=== PATIENT | male | born 1980 ===

== ENCOUNTER 2020-08-20 07:53 | Emergency (ER) | payer OTHER, SELFPAY ==
[2020-08-20 08:27] VITALS: BP 131/81; PULSE 85; RESP 16; TEMP 36.6; O2SAT 99; BMI 33.0
--- NOTE | 2020-08-20 08:30 | PC.NURSE ---
Addendum entered by Pierce Christy 08/20/20 10:02: SHOULD READ ZENY GO NOT GIOVANI PAULA Original Note: GIOVANI GO AT BEDSIDE FOR INITIAL EVALUATION PT INFORMED OF THE PLAN OF CARE
--- NOTE | 2020-08-20 08:35 | ED.MALEGU ---
HPI - Male Genitourinary General Chief complaint: Urogenital-Male Stated complaint: pain in the genital area Time Seen by Provider: 08/20/20 08:16 Source: patient Mode of arrival: ambulatory History of Present Illness HPI Narrative: 40-year-old male with a past medical history of diabetes presenting to the ED complaining of red, inflamed, painful head of penis/foreskin since yesterday. Reports get penis stuck in pant zipper prior to symptoms beginning. Admits to associated dysuria. Reports he is unable to fully retract foreskin due to swelling. Denies difficulty/inability to urinate, fever/chills, penile discharge, penile/scrotal lesions or testicular pain/swelling. Denies direct trauma to area Patient denies being sexually active or concern for STI MD Complaint: dysuria and genital injury Related Data Previous Rx's Medication Instructions Recorded insulin degludec 200 unit/mL (3 72 unit SUBCUT DAILY 30 Days #10.8 07/22/20 mL) subcutaneous pen ml metformin 1,000 mg tablet 1,000 mg PO BID 30 Days #60 tab 07/22/20 oxycodone-acetaminophen 5 mg-325 1 tab PO BID PRN 30 Days #60 tab 07/23/20 mg tablet pen needle, diabetic 31 gauge x #1200 ea 07/23/2002/22 clotrimazole 1 applic TOPICAL BID 14 Days #14 g 08/20/20 metronidazole 1 applic TOPICAL BID 7 Days #45 g 08/20/20 Allergies Allergy/AdvReac Type Severity Reaction Status Date / Time Penicillins [PCN] Allergy Mild UNKNOWN Unverified 06/26/20 19:35 penicillin V Allergy Unknown Unverified 05/01/20 00:00 Review of Systems Review of Systems: Constitutional: No Weight loss, No Fever, No Chills Gastrointestinal: No Nausea, No Vomiting, No Abdominal pain Genitourinary:+ Dysuria, +Urinary Frequency, No Flank Pain, +penile swelling and pain Musculoskeletal: No joint pain, No Myalgias, No Joint Swelling Skin: No Skin Lesions, No rash Yes all other systems are reviewed and are negative FOR[facility]LY [facility], [facility] Past Medical History Attestation statement: The following information was validated with the patient. Medical History (Updated 08/20/20 @ 08:59 by DONAVAN Parker) Diabetes mellitus Social History Social History Smoked in Last 30 Days: No Use of substances other than those prescribed or required for medical reasons: No Advance Directives: No Advance Directives Information Provided: No Physical Exam Vital Signs: Vital Signs: Last Vital Signs Temp 98 F 08/20/20 08:27 Pulse 78 08/20/20 09:07 Resp 20 08/20/20 09:07 BP 138/78 08/20/20 09:07 Pulse Ox 98 08/20/20 09:07 Body Mass Index 33.0 Const: General: cooperative and healthy appearing Orientation/consciousness: patient oriented x3 Limitations: no limitations HENMT: Head: Yes normal to inspection Ears: hearing grossly normal bilaterally General nose exam: Normal external nose present Face and sinus: Yes normal facial exam Eyes: General: appearance normal, both eyes and all related structures EOM: EOMs intact bilaterally Neck: Neck: Yes normal visual inspection Resp: Effort & Inspection: normal respiratory effort GI: Inspection: Yes normal to inspection Palpation (GI): Soft to palpation : Other: foreskin/head of penis swollen, erythematous, macerated with slightly yellowish drainage noted. No appreciable genital lesions. Unable to fully retract or pull foreward foreskin 2/2 swelling Skin: Rashes: no rashes Wounds: no wounds Neuro: General: patient oriented x3 Gait exam (Neuro): Normal gait present Extrem: General: Yes normal to inspection Course Course Course Narrative: -patient not agreeable to treatment for STIs in the ED at this time, would like to wait for cultures -UA not infected MDM - Male Genitourinary MDM Narrative Medical decision making narrative: On exam VSS, NAD/well-appearing, physical exam as above. Concern for balanitis 2/2 DM or penile injury from zipper. Low concern for phimosis or paraphimosis. Concern for possible STI. Rule out UTI Plan: UA, STI Lab Data Labs: Lab Results 08/20/20 08/20/20 Range/Units 09:08 09:12 POC Glucose 181 H (60-115) mg/dL Urine Color YELLOW Urine Appearance HAZY Urine pH 6.0 (5.0-8.0) Ur Specific [place] >= 1.030 H (1.005-1.025) Urine Protein 1+ H (NEG-TRACE) MG/DL Urine Glucose (UA) 500 H (NEG) MG/DL Urine Ketones 5 (NEG) MG/DL Urine Blood TRACE (NEG) Urine Nitrite NEG (NEG) Ur Leukocyte Esterase TRACE H (NEG) Urine RBC 0-2 (0) /HPF Urine WBC 1-4 (0-4) /HPF Ur Squamous Epith Cells 1+ /LPF Urine Bacteria TRACE /LPF Discharge Plan Discharge Clinical Impression: Balanitis Patient Disposition: Home, Self-Care Additional Instructions: The infection her penis is likely fungal or bacterial, clotrimazole and metronidazole ointment treat different bacteria, apply as directed You should follow-up with your primary care doctor in 3-5 days If area worsens, becomes more swollen, you are unable to urinate, discomfort becomes unbearable, or you fever return to the ED Prescriptions: New clotrimazole 1 % cream 1 applic topical BID 14 Days Qty: 14 RF: 0 metronidazole 0.75 % gel 1 applic topical BID 7 Days Qty: 45 RF: 0 No Action Tresiba FlexTouch U-200 200 unit/mL (3 mL) insulin pen 72 unit subcut DAILY 30 Days Qty: 10.8 RF: 11 metformin 1,000 mg tablet 1,000 mg PO BID 30 Days Qty: 60 RF: 11 (DME) pen needle, diabetic [1st Tier Unifine Pentips] 31 gauge x 5/16 needle See Rx Instructions .ROUTE .MEDSUPPLY Qty: 1200 RF: 11 oxycodone-acetaminophen [Percocet] 5-325 mg tablet 1 tab PO BID PRN (Reason: pain) 30 Days Qty: 60 RF: 0 Referrals: Charlene Cramer MD [Primary Care Provider] - 2 days
[2020-08-20 09:07] VITALS: BP 138/78; PULSE 78; RESP 20; O2SAT 98
[2020-08-20 09:11] LABS: Glucose, Whole Blood 181 mg/dL (60-115)
[2020-08-20 09:23] LABS: Glucose Urine UA 500 MG/DL (NEG); Leukocyte Esterase Urine TRACE (NEG); Nitrite Urine NEG (NEG); Specific Gravity - Urine >= 1.030 (1.005-1.025); Urine Blood TRACE (NEG); Urine Ketones 5 MG/DL (NEG); Urine Protein 1+ MG/DL (NEG-TRACE)
[2020-08-20 09:24] LABS: Appearance Urine HAZY; Color Urine YELLOW
[2020-08-20 09:36] LABS: Bacteria Urine TRACE /LPF; RBC Urine 0-2 /HPF (0); Squamous Epithelial Cell Urine 1+ /LPF
[2020-08-20] MEDS: Ibuprofen 600 MG TABLET PO (09:40)
[2020-08-20 16:30] LABS: CT PCR NOT DETECTED (Not Detect.); NG PCR NOT DETECTED (Not Detect.)
== END 2020-08-20 10:07 | disposition home or self-care (01) ==
PROVIDERS: Physician Assistant; Emergency Provider Emergency Medicine; PCP Internal Medicine
DX: N48.1 Balanitis (principal); Z79.899 Other long term (current) drug therapy
CPT/HCPCS: 81001; 82947; 87086; 87491; 87591; 99284

== ENCOUNTER 2020-08-21 15:36 | Emergency (ER) | payer OTHER, SELFPAY ==
[2020-08-21 16:24] VITALS: BP 135/90; PULSE 77; RESP 16; TEMP 37.4; O2SAT 99; BMI 30.7
--- NOTE | 2020-08-21 16:59 | ED.MALEGU ---
HPI - Male Genitourinary General Chief complaint: Urogenital-Male Stated complaint: allergic reaction Time Seen by Provider: 08/21/20 16:59 History of Present Illness HPI Narrative: Patient was seen here yesterday complains of pain in his foreskin when he urinates or attempts to retract foreskin and he was seen yesterday for balanitis and put on metronidazole cream and clotrimazole cream but says whenever he urinates it is very very painful to the skin, he denies inability to urinate, he denies fever or chills no abdominal pain no back pain Related Data Previous Rx's Medication Instructions Recorded insulin degludec 200 unit/mL (3 72 unit SUBCUT DAILY 30 Days #10.8 07/22/20 mL) subcutaneous pen ml metformin 1,000 mg tablet 1,000 mg PO BID 30 Days #60 tab 07/22/20 oxycodone-acetaminophen 5 mg-325 1 tab PO BID PRN 30 Days #60 tab 07/23/20 mg tablet pen needle, diabetic 31 gauge x #1200 ea 07/23/2002/22 clotrimazole 1 applic TOPICAL BID 14 Days #14 g 08/20/20 lisinopril 5 mg tablet 5 mg PO DAILY #30 tab 08/20/20 metronidazole 1 applic TOPICAL BID 7 Days #45 g 08/20/20 betamethasone valerate 1 applic TOPICAL BID 10 Days #15 g 08/21/20 cephalexin [Keflex] 500 mg PO QID 7 Days #28 cap 08/21/20 oxycodone-acetaminophen [Percocet] 1 tab PO Q6H PRN #10 tab 08/21/20 Allergies Allergy/AdvReac Type Severity Reaction Status Date / Time Penicillins [PCN] Allergy Mild UNKNOWN Unverified 06/26/20 19:35 penicillin V Allergy Unknown Unverified 05/01/20 00:00 Review of Systems Review of Systems: There is no fever no chills no abdominal pain no flank pain no back pain no leg swelling FORMERLY [facility] Past Medical History Attestation statement: The following information was validated with the patient. FOR[facility]LY [facility] Narrative: Patient has history of diabetes and he says sugars at home are usually in the 200-300 range Medical History (Updated 08/21/20 @ 17:34 by DONAVAN Shaffer) Diabetes mellitus Social History Social History Alcohol intake: never Smoked in Last 30 Days: No Use of substances other than those prescribed or required for medical reasons: No Advance Directives: No Advance Directives Information Provided: Yes Physical Exam Vital Signs: Vital Signs: Last Vital Signs Temp 99.4 F 08/21/20 16:24 Pulse 77 08/21/20 16:24 Resp 16 08/21/20 16:24 BP 135/90 H 08/21/20 16:24 Pulse Ox 99 08/21/20 16:24 Body Mass Index 30.7 Patient is A&O x3, no acute distress, well hydrated, neck is supple No respiratory distress Abdomen nontender Genital exam the foreskin is very swollen and painful to retract with redness confined to the foreskin and there are some cracks in the tissue as well of the foreskin no other genital lesions, no testicular swelling Extremities full range of motion x4 skin no other rashes neuro no focal deficit Course Course Course Narrative: I checked urine culture from yesterday and there was no positive urine culture so no new urinalysis was done as the patient clearly states the pain is when the urine touches his skin I added a steroid cream and Keflex as well as some pain medicine and he was discharged with recommendation to follow with a urologist Discharge Plan Discharge Clinical Impression: Balanitis Patient Disposition: Home, Self-Care Additional Instructions: Follow with primary care for referral to a urologist, you probably need a circumcision I added antibiotic keflex and an additional steroid cream, and continue using the 2 creams you were given yesterday Return any time for fever, worse pain and swelling, inability to urinate, any worse condition or any concerns Prescriptions: New cephalexin [Keflex] 500 mg capsule 500 mg PO QID 7 Days Qty: 28 RF: 0 betamethasone valerate 0.1 % cream 1 applic topical BID 10 Days Qty: 15 RF: 0 oxycodone-acetaminophen [Percocet] 5-325 mg tablet 1 tab PO Q6H PRN (Reason: pain) Qty: 10 RF: 0 No Action Tresiba FlexTouch U-200 200 unit/mL (3 mL) insulin pen 72 unit subcut DAILY 30 Days Qty: 10.8 RF: 11 metformin 1,000 mg tablet 1,000 mg PO BID 30 Days Qty: 60 RF: 11 (DME) pen needle, diabetic [1st Tier Unifine Pentips] 31 gauge x 5/16 needle See Rx Instructions .ROUTE .MEDSUPPLY Qty: 1200 RF: 11 oxycodone-acetaminophen [Percocet] 5-325 mg tablet 1 tab PO BID PRN (Reason: pain) 30 Days Qty: 60 RF: 0 lisinopril 5 mg tablet 5 mg PO DAILY Qty: 30 RF: 5 clotrimazole 1 % cream 1 applic topical BID 14 Days Qty: 14 RF: 0 metronidazole 0.75 % gel 1 applic topical BID 7 Days Qty: 45 RF: 0 Referrals: Marco Vasquez MD [Physician] - 2 days (balanitis, difficult to retract forskin, may need circumcision) Stand Alone Forms: Work/School Release Interventions: ED Discharge Assessment Last Done: 08/21/20 18:05 Discharge Date/Time: 08/21/20 18:07
[2020-08-21] MEDS: cephALEXin 500 MG CAPSULE PO (17:49)
== END 2020-08-21 18:07 | disposition home or self-care (01) ==
PROVIDERS: Emergency Provider Emergency Medicine Emergency Medical Services; PCP Internal Medicine
DX: N48.1 Balanitis (principal); L23.9 Allergic contact dermatitis, unspecified cause; Z79.899 Other long term (current) drug therapy
CPT/HCPCS: 99283; 99284

== ENCOUNTER → 2020-09-12 08:53 | Outpatient (BNVA) | payer OTHER, SELFPAY | PROVIDERS: PCP Internal Medicine; Visit Provider Urology | DX: N47.1 Phimosis (principal) | CPT/HCPCS: 99202 ==

== ENCOUNTER 2020-09-15 07:09 | Day surgery (SDC) | payer OTHER, SELFPAY ==
--- NOTE | 2020-09-12 12:58 | HO.ANESPROP2 ---
Documented by User: Mayuri Stephens 09/12/20 12:59 HPI - Anesthesia Eval Consult details Narrative: 40yo M for Circumcision PMFSH Past Medical History Medical History Diabetes mellitus Recurrent UTI Family History Family History Father No problems noted. Mother No problems noted. Maternal Grandmother Stomach cancer Surgical History Surgical History History of surgery Social History Social History Alcohol intake: never Smoking Status: Never smoker Use of substances other than those prescribed or required for medical reasons: No Advance Directives: Yes Advance Directives on File: Yes Advance Directives Date on File: 09/15/20 Recently lost weight without trying: No Meds Allergies Allergy/AdvReac Type Severity Reaction Status Date / Time Penicillins [PCN] Allergy Mild UNKNOWN Verified 08/26/20 09:39 penicillin V Allergy Unknown Unknown Verified 08/26/20 09:39 Home Medications Medication Instructions Recorded Confirmed Type doxepin 25 mg capsule 25 mg PO BEDTIME 09/12/20 History pen needle, diabetic 31 gauge x #50 ea 09/12/20 History 3 Exam Exam Date and Time: September 12, 2020 125 Assessment and Plan Assessment Anesthesia Assessment: Chart Reviewed Documented by User: Deidre Espinosa 09/15/20 09:47 PMFSH Past Medical History Medical History Diabetes mellitus Recurrent UTI Family History Family History Father No problems noted. Mother No problems noted. Maternal Grandmother Stomach cancer Surgical History Surgical History History of surgery Social History Social History (Reviewed 09/15/20 @ 09:46 by Deidre Hendricks Alcohol intake: never Smoking Status: Never smoker Use of substances other than those prescribed or required for medical reasons: No Advance Directives: Yes Advance Directives on File: Yes Advance Directives Date on File: 09/15/20 Recently lost weight without trying: No Meds Allergies Allergy/AdvReac Type Severity Reaction Status Date / Time Penicillins [PCN] Allergy Mild UNKNOWN Verified 08/26/20 09:39 penicillin V Allergy Unknown Unknown Verified 08/26/20 09:39 Home Medications Medication Instructions Recorded Confirmed Type doxepin 25 mg capsule 25 mg PO BEDTIME 09/12/20 History pen needle, diabetic 31 gauge x #50 ea 09/12/20 History 12/23 Exam Airway Mallampati Class: II TM Dist: >3cm Neck ROM: Full Assessment and Plan Assessment Anesthesia Assessment: Anesthesia Plan Discussed and Chart Reviewed Final Anesthetic Review NPO: Yes ASA Class: II Final Preanesthetic Review: No Changes in Pt Med Stat, Meds/Allgs Chart Reviewed, Consent Obtained/Reviewed and Anes Risks/Benef Reviewed Patient Risk: Low Procedure Risk: Low Assessment/Block/Sedation in SS: Assess/Block/Sedation-SS Anesthetic Plan Anesthetic Plan: MAC: Disposition: Standard PACU
[2020-09-15] VITALS (12 sets, daily range): BP systolic 113–144; BP diastolic 72–91; PULSE 71–86; RESP 16; TEMP 36.4–37.1; O2SAT 97–99; BMI 29.0
[2020-09-15 08:54] LABS: Glucose, Whole Blood 323 mg/dL (60-115)
[2020-09-15] MEDS: Lactated Ringers 1,000 ML 100 ML IVCONT (08:57)
[2020-09-15] MEDS: ceFAZolin Sodium/Dextrose,Iso 2 GM/50 ML PIGGYBACK IV (08:57)
--- NOTE | 2020-09-15 10:38 | P.CONAN_ITS ---
FORM[facility]LY [facility] Past Medical History Medical History Diabetes mellitus Recurrent UTI Family History Family History Father No problems noted. Mother No problems noted. Maternal Grandmother Stomach cancer Surgical History Surgical History History of surgery Social History Social History Alcohol intake: never Smoking Status: Never smoker Use of substances other than those prescribed or required for medical reasons: No Advance Directives: Yes Advance Directives on File: Yes Advance Directives Date on File: 09/15/20 Recently lost weight without trying: No Meds Allergies Allergy/AdvReac Type Severity Reaction Status Date / Time Penicillins [PCN] Allergy Mild UNKNOWN Verified 08/26/20 09:39 penicillin V Allergy Unknown Unknown Verified 08/26/20 09:39 Home Medications Medication Instructions Recorded Confirmed Type doxepin 25 mg capsule 25 mg PO BEDTIME 09/12/20 History pen needle, diabetic 31 gauge x #50 ea 09/12/20 History 12/23 Exam Exam Date and Time: September 15, 2020 1038 Height,Weight and Vital Signs: Height 5 ft 6 in Weight 81.647 kg Last Vital Signs Temp 97.6 F 09/15/20 08:44 Pulse 76 09/15/20 08:44 Resp 16 09/15/20 08:44 BP 128/81 09/15/20 08:44 Pulse Ox 98 09/15/20 08:44 Pertinent Lab Results Pertinent Lab Results: Laboratory Tests 09/15/20 08:50 POC Glucose 323 H Airway Mallampati Class: II TM Dist: >3cm Neck ROM: Full Assessment and Plan Assessment Anesthesia Assessment: Anesthesia Plan Discussed and Chart Reviewed Final Anesthetic Review NPO: Yes ASA Class: II Final Preanesthetic Review: No Changes in Pt Med Stat, Meds/Allgs Chart Reviewed, Consent Obtained/Reviewed and Anes Risks/Benef Reviewed Patient Risk: Low Procedure Risk: Low Anesthetic Plan Anesthetic Plan: GA Disposition: Standard PACU
--- NOTE | 2020-09-15 10:40 | MHC.SHP ---
Pre-Procedural Eval Section A The patient is an INPATIENT: No Changes since office visit: No Cold of Flu in the past 2 weeks, No New Medical Problems, No Changes in Medication and No Patient answered all questions The History & Physical has been completed within 30 days and I have reviewed it.: Yes Section B Chief Complaint: Phimosis Allergies: Allergies Allergy/AdvReac Type Severity Reaction Status Date / Time Penicillins [PCN] Allergy Mild UNKNOWN Verified 08/26/20 09:39 penicillin V Allergy Unknown Unknown Verified 08/26/20 09:39 Plan Patient has been examined and remains a candidate for the planned procedure
--- NOTE | 2020-09-15 11:44 | PM.OP ---
Brief Operative Note Date of Service: 09/15/20 Pre-op diagnosis: Phimosis Post-op diagnosis: same Procedure: Circumcision Surgeon: Marco Vasquez MD Anesthesia: GLMA Estimated blood loss (mL): 10 Pathology: none sent Condition: stable Disposition: same day
--- NOTE | 2020-09-15 11:45 | P.OP_ITS ---
Operative Note Operative Note Date of Service: 09/15/20 Narrative: PreOperative Diagnosis: Phimosis Post Operative Diagnosis: Phimosis Procedure: Circumcision Surgeon: Dr Marco Vasquez Anesthesia: General Indications for procedure: This is a 40-year-old diabetic male. Had developed phimosis and inability to retract foreskin. On examination in office phimosis was marked. Had prescribed steroid cream was waiting for circumcision. Recommendation was circumcision. Risks and benefits have been discussed. Procedure: After informed consent was verified the patient was brought to the operating room and placed in a supine position. anesthesia was administered per protocol. The patient was prepped and draped in a sterile fashion. A safety pause time- out was performed. Antibiotics have been given. Patient had a marked phimosis. Foreskin was unable to be retracted operating room. Initially anesthetic was given with local anesthetic to the base of the penis and dorsum. A clamp was taken on placed midline on the dorsal aspect of the penis. A dorsal incision was then made. This allowed foreskin to be fully retracted. Smegma was cleaned from the glans penis. The penis was cleaned. A proximal incision was marked on the skin the resting position of the penis. Using a 15 blade this incision was taken down through the skin to the avascular fashion. The foreskin was then retracted. Approximately 5 mm from the coronal sulcus 2nd incision was made running circumferentially. The frenulum of the penis was attached. This was divided and using 4-0 chromic sutures the remaining area on the underside of the glans was reapproximated. The circumcise in distal incision was completed. The sleeve of tissue was lifted and following the avascular plane into the sleeve was divided and removed. All small bleeding areas were controlled. The skin edges were then reapproximated using a combination of 3-0 and 4-0 chromic. A dressing was placed consisting of bacitracin, Xeroform gauze, Dawood wrap and Coban dressing. He tolerated procedure well was explained the operating room transferred in stable condition to the recovery area. Dressing should not be removed for 48 hours. Glans should be coated with thin layer of apical for 2 times a day during recovery. Pathology: Drains:
[2020-09-15] MEDS: oxyCODONE HCl Immed Release 5 MG TABLET PO ×2 (12:13→12:26)
[2020-09-15] MEDS: Acetaminophen 325 MG TABLET 650 MG PO (12:15)
[2020-09-15] MEDS: fentaNYL citrate/PF 100 MCG/2 ML VIAL 50 MCG IVPUSH ×2 (12:25→12:35)
--- NOTE | 2020-09-15 12:35 | HO.POSTANES ---
Post Anesthesia Evaluation Post Anesthesia Evaluation Vital Signs: Vital Signs Temp Pulse Resp BP Pulse Ox 09/15/20 12:30 75 16 118/78 97 09/15/20 12:25 74 16 113/77 97 09/15/20 12:11 73 16 126/75 98 09/15/20 11:56 81 16 128/87 99 09/15/20 11:51 82 16 136/84 97 09/15/20 11:46 97.8 F 71 16 141/86 H 97 09/15/20 08:44 97.6 F 76 16 128/81 98 Anesthesia: General Mental Status: Awake Pain Control: Satisfactory Nausea/Vomiting: None Hydration: Adequate Anesthesia-Related Issues: No Anes. Related Issues
== END 2020-09-15 13:53 | disposition home or self-care (01) ==
PROVIDERS: PCP Internal Medicine; Visit Provider Urology
PROC: (CPT 54161; principal; 2020-09-15 09:30)
DX: N47.1 Phimosis (principal); E11.9 Type 2 diabetes mellitus without complications; Z88.0 Allergy status to penicillin
CPT/HCPCS: 54161; 82947; 88304; J0690; J1100; J2250; J2405; J3010

== ENCOUNTER → 2020-10-15 10:20 | Outpatient (BNVA) | payer OTHER, SELFPAY | PROVIDERS: PCP Internal Medicine; Visit Provider Urology | DX: N47.1 Phimosis (principal) | CPT/HCPCS: 99212 ==

== ENCOUNTER 2021-04-01 00:55 | Emergency (ER) | payer OTHER, SELFPAY ==
--- NOTE | ~2021-04-01 | XR_ITS ---
EXAMINATION: XR HAND, RIGHT CLINICAL INFORMATION: Pain, swelling, ?foreign body between thumb and index finger COMPARISON: 01/29/2019 TECHNIQUE: PA, lateral, and oblique views of the right hand. FINDINGS: No acute fracture or malalignment. Again seen are hypertrophic osseous changes around the sesamoids of the thumb MCP joint, unchanged from prior. 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 No acute osseous findings are identified. Bone mineralization is normal. Joint spaces appear relatively well-preserved. XR/XR hand RT min 3V IMPRESSION: No acute osseous findings are identified in the right hand. Chronic hypertrophic osseous changes are present around the sesamoids of the thumb MCP joint, unchanged.
[2021-04-01 01:46] VITALS: BP 153/70; PULSE 90; RESP 20; TEMP 36.4; O2SAT 99; BMI 29.9
--- NOTE | 2021-04-01 03:45 | ED_ITS ---
HPI - Extremity Problem General Chief complaint: Extremity Injury, Upper Stated complaint: Splinter/Hand swelling/Work Inj Time Seen by Provider: 04/01/21 03:45 Source: patient Mode of arrival: ambulatory History of Present Illness HPI Narrative: 40-year-old male diabetic who presents with right hand redness/pain/swelling this started after an injury whereby he had a puncture wound at work with wood. Related Data Home Medications Medication Instructions Recorded Confirmed doxepin 25 mg capsule 25 mg PO BEDTIME 09/12/20 12/15/20 pen needle, diabetic 31 gauge x #50 ea 09/12/20 12/15/2012/23 alcohol swabs pad TOPICAL QID 10/15/20 12/15/20 escitalopram oxalate 10 mg tablet 10 mg PO DAILY 10/15/20 12/15/20 pen needle, diabetic 32 gauge x #50 ea 10/15/20 12/15/20 Previous Rx's Medication Instructions Recorded metformin 1,000 mg tablet 1,000 mg PO BID 30 Days #60 tab 07/22/20 pen needle, diabetic 31 gauge x #1200 ea 07/23/2002/22 metronidazole 0.75 % topical gel 1 applic TOPICAL BID 7 Days #45 g 08/29/20 blood sugar diagnostic #100 ea 12/15/20 insulin degludec 200 unit/mL (3 75 unit SUBCUT DAILY 30 Days 12/15/20 mL) subcutaneous pen #11.25 ml clotrimazole-betamethasone 1 1 appl TOPICAL BID 30 Days #45 g 12/30/20 %-0.05 % topical cream lisinopril 5 mg tablet 5 mg PO DAILY #30 tab 02/25/21 oxycodone-acetaminophen 5 mg-325 1 tab PO Q6H PRN 30 Days #120 tab 03/02/21 mg tablet Allergies Allergy/AdvReac Type Severity Reaction Status Date / Time Penicillins [PCN] Allergy Mild swelling Verified 12/15/20 16:18 Review of Systems Review of Systems: Pertinent positives and negatives as stated in HPI 10 point review of systems is otherwise negative. [facility] Past Medical History Source: nursing notes reviewed Medical History Diabetes mellitus Essential hypertension Recurrent UTI Surgical History History of surgery Family History Family History Father No problems noted. Mother No problems noted. Maternal Grandmother Stomach cancer Sister No problems noted. Sister No problems noted. Brother No problems noted. Brother No problems noted. Son No problems noted. Son No problems noted. Daughter No problems noted. Daughter No problems noted. Social History Social History Alcohol intake: never Patient Tobacco Use Status: Never used Tobacco Use of substances other than those prescribed or required for medical reasons: No Advance Directives: No Advance Directives Date on File: 09/15/20 Physical Exam Vital Signs: Vital Signs: Last Vital Signs Temp 97.5 F 04/01/21 01:46 Pulse 90 04/01/21 01:46 Resp 20 04/01/21 01:46 BP 153/70 H 04/01/21 01:46 Pulse Ox 99 04/01/21 01:46 Body Mass Index 29.9 VITAL SIGNS: Reviewed. GENERAL: Well developed, well nourished, in no acute distress. HEAD: Normocephalic/atraumatic EYES: PERRLA, EOMI EARS: Ext canals without abnormality OROPHARYNX: no oral lesions noted, posterior pharynx clear LUNGS: Normal breath sounds. No adventitious sounds or accessory muscle use. SpO2<99> CARDIOVASCULAR: Regular rate and rhythm without noted murmurs ABDOMEN: Soft, non-tender, non-distended with bowel sounds. RIGHT HAND: Erythema and mild swelling in the web spacing between the thumb and index finger Course Course Course Narrative: 40-year-old male with history and clinical presentation co nsistent with puncture wound to right hand. Review of x-rays negative for evidence of foreign body for the presence of air within the tissue. Patient provided with combination analgesics and provided with initial antibiotics. He will be discharged in stable condition with remaining course of antibiotics and instructions to follow-up with his primary care provider. Discharge Plan Discharge Clinical Impression: Hand swelling Patient Disposition: Home, Self-Care Instructions: Puncture Wound (ED) Additional Instructions: 1. Reanude todos los medicamentos caseros seg?n lo prescrito. 2. Tylenol 1000 mg, por v?a oral, cada 6 horas seg?n sea necesario para controlar el dolor. No exceda los 4000 mg en 24 horas. 3. Ibuprofeno 400 mg, por v?a oral con leche o alimentos, cada 6 horas seg?n sea necesario para controlar el dolor. Recomiende amparo esto en combinaci?n con Tylenol para un alivio adicional de los s?ntomas. 4. Complete todo el ciclo de antibi?ticos que le hayan recetado. 5. David un seguimiento con urbina proveedor de atenci?n primaria en los pr?ximos 2-3 d?as para orlando reevaluaci?n. Regrese a la deloris de emergencias si drew s?ntomas empeoran. Prescriptions: No Action metformin 1,000 mg tablet 1,000 mg PO BID 30 Days Qty: 60 RF: 11 (DME) pen needle, diabetic [1st Tier Unifine Pentips] 31 gauge x 5/16 needle See Rx Instructions .ROUTE .MEDSUPPLY Qty: 1200 RF: 11 clotrimazole-betamethasone 1-0.05 % cream 1 appl topical BID 30 Days Qty: 45 RF: 3 lisinopril 5 mg tablet 5 mg PO DAILY Qty: 30 RF: 6 oxycodone-acetaminophen 5-325 mg tablet 1 tab PO Q6H PRN (Reason: pain) 30 Days Qty: 120 RF: 0 metronidazole 0.75 % gel 1 applic topical BID 7 Days Qty: 45 RF: 0 Tresiba FlexTouch U-200 200 unit/mL (3 mL) insulin pen 75 unit subcut DAILY 30 Days Qty: 11.25 RF: 11 (DME) FreeStyle Test Strip See Rx Instructions .ROUTE .MEDSUPPLY Qty: 100 RF: 11 doxepin 25 mg capsule 25 mg PO BEDTIME RF: 0 (DME) pen needle, diabetic 31 gauge x 3/16 needle See Rx Instructions ea subcut .MEDSUPPLY Qty: 50 RF: 0 alcohol swabs Pads, Medicated topical QID RF: 0 escitalopram oxalate 10 mg tablet 10 mg PO DAILY RF: 0 (DME) pen needle, diabetic 32 gauge x 5/32 needle See Rx Instructions ea subcut QID Qty: 50 RF: 0 Referrals: Charlene Cramer MD [Primary Care Provider] - 2 days (Re-evaluation of puncture wound to right hand, patient started on antibiotics, no evidence of foreign body) Print Language: Canadian
[2021-04-01] MEDS: Ibuprofen 400 MG TABLET PO (04:15)
[2021-04-01] MEDS: Acetaminophen 325 MG TABLET 975 MG PO (04:15)
[2021-04-01] MEDS: Diphth,Pertus(ACell),Tet Adult 0.5 ML SYRINGE IM (04:16)
--- NOTE | 2021-04-01 04:19 | PC.NURSE ---
PT MEDICATED PER MAR, AWAITING XRAY RESULT AND I&D. AWRE OF PLAN OF CARE.
== END 2021-04-01 04:52 | disposition home or self-care (01) ==
PROVIDERS: Emergency Provider Student in an Organized Health Care Education/Training Program; PCP Internal Medicine
DX: S61.431A Puncture wound without foreign body of right hand, initial encounter (principal); M79.89 Other specified soft tissue disorders; E11.9 Type 2 diabetes mellitus without complications; I10 Essential (primary) hypertension; W45.8XXA Other foreign body or object entering through skin, initial encounter; Y93.9 Activity, unspecified; Y92.89 Other specified places as the place of occurrence of the external cause; Y99.0 Civilian activity done for income or pay; Z79.4 Long term (current) use of insulin; Z79.899 Other long term (current) drug therapy
CPT/HCPCS: 73130; 90471; 90715; 99284

== ENCOUNTER 2021-05-16 18:54 | Emergency (ER) | payer OTHER, SELFPAY ==
[2021-05-16 19:26] VITALS: BP 122/71; PULSE 85; RESP 16; TEMP 36.6; O2SAT 98; BMI 27.3
--- NOTE | 2021-05-16 21:59 | ED_ITS ---
HPI - Wound/Laceration General Chief Complaint: Wound/Laceration Stated Complaint: wound check Time Seen by Provider: 05/16/21 21:50 Source: patient Mode of arrival: ambulatory Limitations: no limitations History of Present Illness HPI narrative: Patient comes to the emergency room complaining of pain in the tip of his right index finger. Patient states that he has significant neuropathy, he has partial distal amputations in his fingers. Patient states that he does not know what happened to his finger this time, yesterday he noticed that the tip of his right index finger was hurting. Patient denies fever or chills Related Data Home Medications Medication Instructions Recorded Confirmed doxepin 25 mg capsule 25 mg PO BEDTIME 09/12/20 12/15/20 pen needle, diabetic 31 gauge x #50 ea 09/12/20 12/15/2012/23 alcohol swabs pad TOPICAL QID 10/15/20 12/15/20 escitalopram oxalate 10 mg tablet 10 mg PO DAILY 10/15/20 12/15/20 pen needle, diabetic 32 gauge x #50 ea 10/15/20 12/15/20 Previous Rx's Medication Instructions Recorded metformin 1,000 mg tablet 1,000 mg PO BID 30 Days #60 tab 07/22/20 pen needle, diabetic 31 gauge x #1200 ea 07/23/2002/22 (1st Tier Unifine Pentips) metronidazole 0.75 % topical gel 1 applic TOPICAL BID 7 Days #45 g 08/29/20 blood sugar diagnostic (FreeStyle #100 ea 12/15/20 Test) insulin degludec 200 unit/mL (3 75 unit SUBCUT DAILY 30 Days 12/15/20 mL) subcutaneous pen (Tresiba #11.25 ml FlexTouch U-200 insulin) lisinopril 5 mg tablet 5 mg PO DAILY #30 tab 02/25/21 clindamycin HCl 300 mg capsule 300 mg PO Q6H 5 Days #20 cap 04/01/21 clotrimazole-betamethasone 1 1 appl TOPICAL BID 30 Days #45 g 04/30/21 %-0.05 % topical cream oxycodone-acetaminophen 5 mg-325 1 tab PO Q6H PRN 30 Days #120 tab 04/30/21 mg tablet Allergies Allergy/AdvReac Type Severity Reaction Status Date / Time Penicillins [PCN] Allergy Mild swelling Verified 12/15/20 16:18 Review of Systems Review of Systems: Constitutional : No Weight loss, No Fever, No Chills, No Night Sweats, No Fatigue, No Malaise ENT/Mouth : No Hearing loss, No Ear Pain, No Nasal Congestion, No Sinus Pain, No Hoarseness, No sore throat, No Rhinorrhea, No Swallowing Difficulty Eyes: No Eye Pain, No Swelling, No Redness, No Foreign Body, No Discharge, No Vision Changes Cardiovascular : No Chest Pain, No SOB, No Dyspnea on Exertion, No Orthopnea, No Edema, No Palpitations Respiratory : No Cough, No Sputum, No Wheezing, No Smoke Exposure, No Dyspnea Gastrointestinal : No Nausea, No Vomiting, No Diarrhea, No Constipation, No abdominal Pain, No Hematochezia, No Melena Genitourinary : no irregular bleeding, No Dysuria, No Urinary Frequency, No Hematuria, No Urinary Incontinence, No Urgency, No Flank Pain, No Urinary Flow Changes, No Hesitancy Musculoskeletal : No joint pain, No Myalgias, No Joint Swelling, mild pain to the index finger distal aspect Skin : No Skin Lesions, No rash Neuro : No Weakness, No Numbness, No Paresthesias, No Loss of Consciousness, No Dizziness, No Headache Psych : No Anxiety/Panic, No Depression, No SI/HI/AH/VH, No Social Issues, Heme/Lymph: No Bruising, No Bleeding,No Lymphadenopathy Endocrine : No Polyuria, No Polydipsia, No Temperature Intolerance [facility] Past Medical History Medical History Diabetes mellitus Essential hypertension Recurrent UTI Surgical History History of surgery Family History Family History Father No problems noted. Mother No problems noted. Maternal Grandmother Stomach cancer Sister No problems noted. Sister No problems noted. Brother No problems noted. Brother No problems noted. Son No problems noted. Son No problems noted. Daughter No problems noted. Daughter No problems noted. Social History Social History Alcohol intake: never Patient Tobacco Use Status: Never used Tobacco Advance Directives: No Advance Directives Date on File: 09/15/20 Physical Exam Vital Signs: Vital Signs: Last Vital Signs Temp 98 F 05/16/21 19:26 Pulse 85 05/16/21 19:26 Resp 16 05/16/21 19:26 BP 122/71 05/16/21 19:26 Pulse Ox 98 05/16/21 19:26 Body Mass Index 27.3 Const: Other: Appearance: Alert. Oriented X3. No acute distress. Eyes: Pupils equal, round and reactive to light. ENT: Pharynx normal. Neck: Normal inspection. Neck supple. No lymph nodes noted. No crepitus CVS: Normal heart rate and rhythm. Pulses normal. Normal S1 and S2 Respiratory: No respiratory distress. Breath sounds normal. No Wheezing. No rales Abdomen: Soft and nontender. No rigidity. No distention. good BS x4 Skin: Skin warm and dry. See below Extremities: No lower extremity edema. Patient has multiple distal partial amputations of the digits in his hands. The distal aspect of the right index has a small ecchymosis at the tip, no pus drainage, no bloody discharge. No erythema. Patient able to flex and extend the remainder of the digit. Neuro: Oriented X 3. No motor deficit. No sensory deficit. Moving all extermities. No slurred speech. Course Course Course Narrative: I discussed the physical exam with the patient, patient likely has a small contusion in his finger, this time infection is not suspected. However, discussed with the patient that if he develops fever, chills, any kind of drainage, he needs to return to the emergency room. Discharge Plan Discharge Clinical Impression: Contusion of finger, right Qualifiers: Encounter type: initial encounter Finger: index finger Patient Disposition: Home, Self-Care Instructions: Hematoma (ED) Additional Instructions: Please follow-up with your primary care physician tomorrow. If you have any worsening or new symptoms, please return to the emergency room or call 911 Prescriptions: No Action metformin 1,000 mg tablet 1,000 mg PO BID 30 Days Qty: 60 RF: 11 (DME) pen needle, diabetic [1st Tier Unifine Pentips] 31 gauge x 5/16 needle See Rx Instructions .ROUTE .MEDSUPPLY Qty: 1200 RF: 11 lisinopril 5 mg tablet 5 mg PO DAILY Qty: 30 RF: 6 clotrimazole-betamethasone 1-0.05 % cream 1 appl topical BID 30 Days Qty: 45 RF: 3 oxycodone-acetaminophen 5-325 mg tablet 1 tab PO Q6H PRN (Reason: pain) 30 Days Qty: 120 RF: 0 clindamycin HCl 300 mg capsule 300 mg PO Q6H 5 Days Qty: 20 RF: 0 metronidazole 0.75 % gel 1 applic topical BID 7 Days Qty: 45 RF: 0 Tresiba FlexTouch U-200 200 unit/mL (3 mL) insulin pen 75 unit subcut DAILY 30 Days Qty: 11.25 RF: 11 (DME) FreeStyle Test Strip See Rx Instructions .ROUTE .MEDSUPPLY Qty: 100 RF: 11 doxepin 25 mg capsule 25 mg PO BEDTIME RF: 0 (DME) pen needle, diabetic 31 gauge x 3/16 needle See Rx Instructions ea subcut .MEDSUPPLY Qty: 50 RF: 0 alcohol swabs Pads, Medicated topical QID RF: 0 escitalopram oxalate 10 mg tablet 10 mg PO DAILY RF: 0 (DME) pen needle, diabetic 32 gauge x 5/32 needle See Rx Instructions ea subcut QID Qty: 50 RF: 0
== END 2021-05-16 22:09 | disposition home or self-care (01) ==
PROVIDERS: Emergency Provider Emergency Medicine; PCP Internal Medicine
DX: S60.021A Contusion of right index finger without damage to nail, initial encounter (principal); X58.XXXA Exposure to other specified factors, initial encounter; E11.9 Type 2 diabetes mellitus without complications; I10 Essential (primary) hypertension; Y93.9 Activity, unspecified; Y92.9 Unspecified place or not applicable; Y99.9 Unspecified external cause status; Z79.4 Long term (current) use of insulin; Z89.021 Acquired absence of right finger(s)
CPT/HCPCS: 99283

== ENCOUNTER 2021-06-30 17:50 | Outpatient (REF) | payer OTHER, SELFPAY ==
[2021-06-30 18:24] LABS: Amphetamine Screen Urine Not Detected (Not Detect); Barbiturates, Urine Not Detected (Not Detect); Benzodiazepines Screen Urine Not Detected (Not Detect); Cannabinoid Screen Urine POSITIVE (Not Detect); Cocaine Screen Urine Not Detected (Not Detect); Creatinine Urine 24.19 mg/dL; Fentanyl, urine Not Detected (Not Detect); Microalbum/Creatinine Ratio Ur 28.9 ug/mg cr; Opiate Screen Urine Not Detected (Not Detect); Phencyclidine Screen Urine Not Detected (Not Detect)
== END 2021-06-30 17:51 | disposition home or self-care (01) ==
LOC: HO.LNP 17:50
PROVIDERS: Visit Provider Internal Medicine
DX: F11.20 Opioid dependence, uncomplicated (principal); E11.9 Type 2 diabetes mellitus without complications
CPT/HCPCS: 80307; 80364; 80365; 82043

== ENCOUNTER 2021-08-28 06:49 | Emergency (ER) | payer OTHER, SELFPAY ==
--- NOTE | ~2021-08-28 | XR_ITS ---
EXAMINATION: XR FINGER, LEFT CLINICAL INFORMATION: Pain. Question foreign body COMPARISON: None TECHNIQUE: Three views of the left third digit. FINDINGS: No radiopaque foreign body. No soft tissue air. The bones and soft tissues are normal. No fracture. Alignment is anatomic. Joint spaces are maintained. XR/XR finger LT min 2V IMPRESSION: Normal finger radiographs. If a nonopaque foreign body is questioned, consider targeted ultrasound.
[2021-08-28 07:03] VITALS: BP 131/79; PULSE 80; RESP 18; TEMP 36.6; O2SAT 98; BMI 25.8
--- NOTE | 2021-08-28 07:09 | ED.EXTPRO ---
HPI - Extremity Problem General Chief complaint: Extremity Injury, Upper Stated complaint: Finger Inj/Work related Time Seen by Provider: 08/28/21 07:08 Source: patient Mode of arrival: ambulatory Limitations: no limitations History of Present Illness Complaint: other (finger injury/swelling) Onset (ago): day(s) (3) Pain Consistency: constant Location: left and other (middle finger - tip) Quality: aching, dull and constant Radiation: none Relieving factors: nothing Exacerbating factors: palpation Associated symptoms: denies other symptoms Context: other (hit it with a hammer also worried that a piece of plywood may have splintered in there) Related Data Home Medications Medication Instructions Recorded Confirmed doxepin 25 mg capsule 25 mg PO BEDTIME 09/12/20 06/30/21 pen needle, diabetic 31 gauge x #50 ea 09/12/20 06/30/2112/23 alcohol swabs pad TOPICAL QID 10/15/20 06/30/21 escitalopram oxalate 10 mg tablet 10 mg PO DAILY 10/15/20 06/30/21 pen needle, diabetic 32 gauge x #50 ea 10/15/20 06/30/21 Previous Rx's Medication Instructions Recorded metformin 1,000 mg tablet 1,000 mg PO BID 30 Days #60 tab 07/22/20 pen needle, diabetic 31 gauge x #1200 ea 07/23/2002/22 (1st Tier Unifine Pentips) blood sugar diagnostic (FreeStyle #100 ea 12/15/20 Test) insulin degludec 200 unit/mL (3 80 unit (0.4 mL) SUBCUT DAILY 30 06/30/21 mL) subcutaneous pen (Tresiba Days #12 ml FlexTouch U-200 insulin) semaglutide 1 mg/dose (2 mg/1.5 1 mg (0.75 mL) SUBCUT QWEEK 90 06/30/21 mL) subcutaneous pen injector Days #9.75 ml (Ozempic) clotrimazole-betamethasone 1 1 appl TOPICAL BID 30 Days #45 g 07/30/21 %-0.05 % topical cream doxycycline monohydrate 100 mg 100 mg PO BID 7 Days #14 tab 08/28/21 tablet Allergies Allergy/AdvReac Type Severity Reaction Status Date / Time Penicillins [PCN] Allergy Mild swelling Verified 06/30/21 16:25 Review of Systems Review of Systems: Constitutional : No Fever, No Chills ENT/Mouth : No sore throat, No Rhinorrhea Eyes: No Eye Pain, No Swelling, No Redness Cardiovascular : No Chest Pain, No SOB Respiratory : No Cough, No Sputum Gastrointestinal : No Nausea, No Vomiting, No Diarrhea, No abdominal Pain Genitourinary : No Dysuria, No Hematuria Musculoskeletal : No joint pain, No Myalgias, pos Joint Swelling Skin : no rash, positive skin lesion Neuro : No Weakness, No Numbness, No Headache Psych : No Anxiety, No Depression [facility] Past Medical History Attestation statement: The following information was validated with the patient. Medical History Chronic hand pain Diabetes mellitus Essential hypertension Mild recurrent major depression Opioid dependence Primary insomnia Recurrent UTI Surgical History History of surgery Family History Family History Father No problems noted. Mother No problems noted. Maternal Grandmother Stomach cancer Sister No problems noted. Sister No problems noted. Brother No problems noted. Brother No problems noted. Son No problems noted. Son No problems noted. Daughter No problems noted. Daughter No problems noted. Social History Social History Housing: Apartment Alcohol intake: never Patient Tobacco Use Status: Never used Tobacco e-Cigarette/Vaping Use: Never Used Second Hand Smoke Exposure: No Advance Directives Date on File: 09/15/20 service: No Current occupational status: unemployed Physical Exam Vital Signs: Vital Signs: Last Vital Signs Temp 97.8 F 08/28/21 07:03 Pulse 80 08/28/21 07:03 Resp 18 08/28/21 07:03 BP 131/79 08/28/21 07:03 Pulse Ox 98 08/28/21 07:03 Body Mass Index 25.8 Appearance: Alert. Oriented X3. No acute distress. Eyes: Pupils equal, round and reactive to light. ENT: Pharynx normal. Neck: Normal inspection. Neck supple. CVS: Normal heart rate and rhythm. Pulses normal. Respiratory: No respiratory distress. Breath sounds normal. Abdomen: no signs of trauma Skin: Skin warm and dry. Normal skin color Extremities:L middle finger full ROM distal NV intact, digit itself is not red or swollen on proximal nail fold very small less than 0.5cm red raised area very minimal fluctuance ?early paronychia no purulence noted Neuro: Oriented X 3. No motor deficit. No sensory deficit. Course Course Course Narrative: tdap is UTD clinically I do not suspect FB I do not even see entrance wound and the area that appears questionable is compatiable with early paronychia MDM - Extremity (Nontraumatic) MDM Narrative Medical decision making narrative: 41 yo male with DM here with L middle finger pain and swelling at the tip after hitting it with a hammer - he has full ROM there is no signs of tenosynovisitis will obtain xray for FB/fracture. His exam seems more consistent with early paronychia will start on augmentin and betadine soaks Discharge Plan Discharge Clinical Impression: Paronychia of finger Patient Disposition: Home, Self-Care Instructions: Paronychia (ED) Additional Instructions: return to ED for any worsening symptoms or concerns NORMAL XRAY NO BROKEN BONE remojos de betadine: 10 gotas en agua tibia remojar vicky 5 minutos dos veces al d?a vicky 5 d?as Regrese si el ?latisha se pone m?s seble, inflamada, dolorosa o aumenta el drenaje. Prescriptions: New doxycycline monohydrate 100 mg tablet 100 mg PO BID 7 Days Qty: 14 RF: 0 No Action metformin 1,000 mg tablet 1,000 mg PO BID 30 Days Qty: 60 RF: 11 (DME) pen needle, diabetic [1st Tier Unifine Pentips] 31 gauge x 5/16 needle See Rx Instructions .ROUTE .MEDSUPPLY Qty: 1200 RF: 11 clotrimazole-betamethasone 1-0.05 % cream 1 appl topical BID 30 Days Qty: 45 RF: 0 (DME) FreeStyle Test Strip See Rx Instructions .ROUTE .MEDSUPPLY Qty: 100 RF: 11 Ozempic 1 mg/dose (2 mg/1.5 mL) pen injector 1 mg subcut QWEEK 90 Days Qty: 9.75 RF: 1 Tresiba FlexTouch U-200 200 unit/mL (3 mL) insulin pen 80 unit subcut DAILY 30 Days Qty: 12 RF: 11 doxepin 25 mg capsule 25 mg PO BEDTIME RF: 0 (DME) pen needle, diabetic 31 gauge x 3/16 needle See Rx Instructions ea subcut .MEDSUPPLY Qty: 50 RF: 0 alcohol swabs Pads, Medicated topical QID RF: 0 escitalopram oxalate 10 mg tablet 10 mg PO DAILY RF: 0 (DME) pen needle, diabetic 32 gauge x 5/32 needle See Rx Instructions ea subcut QID Qty: 50 RF: 0 Stand Alone Forms: Work/School Release Print Language: Chinese
--- NOTE | 2021-08-28 07:55 | PC.NURSE ---
1ST ENCOUNTER WITH PATIENT FOR DC PURPOSES,. PT AWAKE, ALERT AND ORIENTED X 3. SKIN WARM AND DRY. SMALL AMOUNT OF REDNESS NOTED AROUND NAIL BED OF FINGER. REDNESS DOES NOT EXTEND UP THE FINGER. +CMS. EVALUATED BY DR NANCE. PLAN IS FOR DC HOME WITH ABX. PT AWARE AND AGREEABLE TO PLAN
== END 2021-08-28 07:57 | disposition home or self-care (01) ==
LOC: HO.ED 07:46
PROVIDERS: Emergency Provider Emergency Medicine; PCP Internal Medicine
DX: L03.012 Cellulitis of left finger (principal); M79.645 Pain in left finger(s); E11.9 Type 2 diabetes mellitus without complications; F11.20 Opioid dependence, uncomplicated; Z79.4 Long term (current) use of insulin
CPT/HCPCS: 73140; 99282; 99283

== ENCOUNTER 2021-10-06 07:08 | Emergency (ER) | payer OTHER, SELFPAY ==
--- NOTE | ~2021-10-06 | US_ITS ---
EXAMINATION: US ABDOMEN LIMITED CLINICAL INFORMATION: Epigastric pain. Elevated liver function tests.. COMPARISON: CT abdomen pelvis 11/14/2018. TECHNIQUE: Real-time imaging of the right upper quadrant abdominal viscera. FINDINGS: PANCREAS: Partially obscured from visualization by overlying bowel gas. LIVER: Moderate diffuse increased echogenicity with obscuration of the expected differentiation between periportal fat in liver parenchyma. No focal parenchymal lesions. Normal capsular contour and hepatic size. GALLBLADDER: A single 3 mm mural based hyperechoic focus with no definitive posterior acoustic shadowing is noted along the nondependent lateral margin of the body of the gallbladder suspicious for a gallbladder wall polyp. Color Doppler interrogation demonstrates no measurable internal flow. Minimal scattered low-level specular reflectors are noted centrally within the gallbladder lumen and may represent minimal debris or echogenic bile sludge. No definitive cholelithiasis identified area no gallbladder wall thickening or pericholecystic fluid collection. COMMON BILE DUCT: Normal in caliber measuring 0.3 cm in diameter. RIGHT KIDNEY: The right kidney measures 12.0 cm in maximum dimension. The superior pole exhibits a 1.1 cm maximum diameter generally rounded anechoic well-circumscribed focus with posterior acoustic enhancement consistent with a simple, benign cyst requiring no additional imaging follow-up. FREE FLUID: None. US/US abdomen limited IMPRESSION: *Single 3 mm gallbladder wall lesion suspicious for a gallbladder wall polyp. The radiographic literature is inconsistent regarding appropriate imaging follow-up. This finding is overwhelmingly likely to be benign. A conservative follow-up protocol would be 6-12 month follow-up imaging to demonstrate stability. *No cholelithiasis. No acute abnormalities identified. Minimal echogenic sludge within the gallbladder lumen. *Diffuse hepatic steatosis.
[2021-10-06 07:22] VITALS: BP 135/85; PULSE 78; RESP 18; TEMP 36.8; O2SAT 96
[2021-10-06 07:24] VITALS: BP 135/85; PULSE 82; RESP 11; TEMP 36.8; O2SAT 98; BMI 26.6
--- NOTE | 2021-10-06 07:34 | ED_ITS ---
HPI - Abdominal Pain General Chief Complaint: Abdominal Pain Stated Complaint: N/V/D Time Seen by Provider: 10/06/21 07:18 Source: patient Mode of arrival: ambulatory Limitations: no limitations History of Present Illness HPI narrative: Patient comes to the emergency room complaining of nausea vomiting and diarrhea for 1 day. Patient states that his and his 2 step sons have similar symptoms. Patient denies using alcohol, admits to occasionally using marijuana. Patient states he used Percocet recently for the pain from a previous prescription he had. Patient states that his was recently diagnosed with influenza. Related Data Home Medications Medication Instructions Recorded Confirmed doxepin 25 mg capsule 25 mg PO BEDTIME 09/12/20 06/30/21 pen needle, diabetic 31 gauge x #50 ea 09/12/20 06/30/2112/23 alcohol swabs pad TOPICAL QID 10/15/20 06/30/21 escitalopram oxalate 10 mg tablet 10 mg PO DAILY 10/15/20 06/30/21 pen needle, diabetic 32 gauge x #50 ea 10/15/20 06/30/21 Previous Rx's Medication Instructions Recorded metformin 1,000 mg tablet 1,000 mg PO BID 30 Days #60 tab 07/22/20 pen needle, diabetic 31 gauge x #1200 ea 07/23/2002/22 (1st Tier Unifine Pentips) blood sugar diagnostic (FreeStyle #100 ea 12/15/20 Test) insulin degludec 200 unit/mL (3 80 unit (0.4 mL) SUBCUT DAILY 30 06/30/21 mL) subcutaneous pen (Tresiba Days #12 ml FlexTouch U-200 insulin) semaglutide 1 mg/dose (2 mg/1.5 1 mg (0.75 mL) SUBCUT QWEEK 90 06/30/21 mL) subcutaneous pen injector Days #9.75 ml (Ozempic) clotrimazole-betamethasone 1 1 appl TOPICAL BID 30 Days #45 g 07/30/21 %-0.05 % topical cream doxycycline monohydrate 100 mg 100 mg PO BID 7 Days #14 tab 08/28/21 tablet lisinopril 5 mg tablet 5 mg PO DAILY 90 Days #90 tab 09/20/21 loperamide 2 mg tablet 2 mg PO Q4H PRN #10 tab 12/28/21 ondansetron HCl 4 mg tablet 4 mg PO Q6H PRN #10 tab 10/06/21 (Zofran) Allergies Allergy/AdvReac Type Severity Reaction Status Date / Time Penicillins [PCN] Allergy Mild swelling Verified 06/30/21 16:25 Review of Systems Review of Systems Constitutional : No Weight loss, No Fever, No Chills, No Night Sweats complaining of fatigue and generalized malaise ENT/Mouth : No Hearing loss, No Ear Pain, No Nasal Congestion, No Sinus Pain, No Hoarseness, No sore throat, No Rhinorrhea, No Swallowing Difficulty Eyes: No Eye Pain, No Swelling, No Redness, No Foreign Body, No Discharge, No Vision Changes Cardiovascular : No Chest Pain, No SOB, No Dyspnea on Exertion, No Orthopnea, No Edema, No Palpitations Respiratory : No Cough, No Sputum, No Wheezing, No Smoke Exposure, No Dyspnea Gastrointestinal : Complaining of nausea vomiting and diarrhea. No Constipation, No abdominal Pain, No Hematochezia, No Melena Genitourinary : no irregular bleeding, No Dysuria, No Urinary Frequency, No Hematuria, No Urinary Incontinence, No Urgency, No Flank Pain, No Urinary Flow Changes, No Hesitancy Musculoskeletal : No joint pain, No Myalgias, No Joint Swelling Skin : No Skin Lesions, No rash Neuro : No Weakness, No Numbness, No Paresthesias, No Loss of Consciousness, No Dizziness, No Headache Psych : No Anxiety/Panic, No Depression, No SI/HI/AH/VH, No Social Issues, Heme/Lymph: No Bruising, No Bleeding,No Lymphadenopathy Endocrine : No Polyuria, No Polydipsia, No Temperature Intolerance Physical Exam Vital Signs: Vital Signs: Last Vital Signs Temp 98.2 F 10/06/21 07:24 Pulse 82 10/06/21 07:24 Resp 11 L 10/06/21 07:24 BP 135/85 10/06/21 07:24 Pulse Ox 98 10/06/21 07:24 BMI result Body Mass Index 26.6 Const: Other: Appearance: Alert. Oriented X3. No acute distress. Well- appearing Eyes: Pupils equal, round and reactive to light. ENT: Pharynx normal. Neck: Normal inspection. Neck supple. No lymph nodes noted. No crepitus CVS: Normal heart rate and rhythm. Pulses normal. Normal S1 and S2 Respiratory: No respiratory distress. Breath sounds normal. No Wheezing. No rales Abdomen: Soft and nontender. No rigidity. No distention. Skin: Skin warm and dry. Normal skin color. Normal skin turgor. Extremities: No lower extremity edema. No Lacerations. No Rash Neuro: Oriented X 3. No motor deficit. No sensory deficit. Moving all extermities. No slurred speech. Course Course Course Narrative: patient's LFTs elevated more than average. Ultrasound negative. Patient feeling better. Patient having any vomiting or diarrhea or abdominal pain at this time, patient feeling better, ready to be discharged MDM - Abdominal Pain Lab Data Result diagrams: 10/06/21 07:52 10/06/21 07:52 Labs: Lab Results 10/06/21 10/06/21 10/06/21 Range/Units 07:52 07:52 07:52 WBC 7.8 (4.8-10.8) X10*3/uL RBC 5.68 (4.60-5.80) X10*6/uL Hgb 17.0 (14.0-18.0) g/dl Hct 48.5 (42.0-52.0) % MCV 85.4 (80.0-98.0) fL MCH 29.9 (27.0-33.0) pg MCHC 35.1 (31.0-36.0) g/dl RDW 11.9 (11.0-16.0) % Plt Count 177 (160-400) X10*3/uL MPV 10.9 (9.4-12.4) fL Immature Gran % (Auto) 0.8 H (0.0-0.4) % Neut % (Auto) 85.3 H (45-73) % Lymph % (Auto) 6.0 L (20-40) % [place] % (Auto) 7.3 (2-11) % Eos % (Auto) 0.3 (0-4) % Baso % (Auto) 0.3 (0-2) % Lymph # (Auto) 0.5 L (1.2-4.9) X10*3/uL [place] # (Auto) 0.6 (0.1-1.2) X10*3/uL Eos # (Auto) 0.0 (0.0-0.4) X10*3/uL Baso # (Auto) 0.0 (0.0-0.2) X10*3/uL Abs Immat Gran (auto) 0.06 H (0.00-0.03) X10*3/uL Absolute Neuts (auto) 6.7 (2.0-8.3) x10*3/uL Absolute Nucleated RBC 0.000 (0.0-0.012) X10*3/uL Nucleated RBC % (auto) 0.0 (0.0-0.2) /100WBC Sodium 134 L (135-145) mmol/L Potassium 4.1 (3.3-5.1) mmol/L Chloride 98 (96-108) mmol/L Carbon Dioxide 28 (22-29) mmol/L Anion Gap 12 (12-20) BUN 13 (9-16) mg/dL Creatinine 0.93 (0.5-1.4) mg/dL Estim Creat Clear Calc 96.7 Estimated GFR > 60 Random Glucose 345 H (60-115) mg/dL Calcium 9.0 (8.4-10.2) mg/dL Total Bilirubin 2.3 H (0.0-1.0) mg/dL Direct Bilirubin 0.7 H (0.0-0.5) mg/dL AST 27 (5-37) U/L ALT 31 (0-40) U/L Alkaline Phosphatase 96 (39-117) U/L Total Protein 7.2 (6.5-8.0) g/dL Albumin 4.2 (3.5-5.0) g/dL Lipase 21 (8-78) U/L Influenza Type A (PCR) NEGATIVE (Negative) Influenza Type B (PCR) NEGATIVE (Negative) RSV RNA Qual (PCR) NEGATIVE (Negative) SARS-CoV-2 RNA (RT-PCR) NEGATIVE (Negative) Imaging Data US - abdomen: Radiologist's impression: FINDINGS: PANCREAS: Partially obscured from visualization by overlying bowel gas. LIVER: Moderate diffuse increased echogenicity with obscuration of the expected differentiation between periportal fat in liver parenchyma. No focal parenchymal lesions. Normal capsular contour and hepatic size. GALLBLADDER: A single 3 mm mural based hyperechoic focus with no definitive posterior acoustic shadowing is noted along the nondependent lateral margin of the body of the gallbladder suspicious for a gallbladder wall polyp. Color Doppler interrogation demonstrates no measurable internal flow. Minimal scattered low-level specular reflectors are noted centrally within the gallbladder lumen and may represent minimal debris or echogenic bile sludge. No definitive cholelithiasis identified area no gallbladder wall thickening or pericholecystic fluid collection. COMMON BILE DUCT: Normal in caliber measuring 0.3 cm in diameter. RIGHT KIDNEY: The right kidney measures 12.0 cm in maximum dimension. The superior pole exhibits a 1.1 cm maximum diameter generally rounded anechoic well-circumscribed focus with posterior acoustic enhancement consistent with a simple, benign cyst requiring no additional imaging follow-up. FREE FLUID: None. US/US abdomen limited IMPRESSION: *Single 3 mm gallbladder wall lesion suspicious for a gallbladder wall polyp. The radiographic literature is inconsistent regarding appropriate imaging follow-up. This finding is overwhelmingly likely to be benign. A conservative follow-up protocol would be 6-12 month follow-up imaging to demonstrate stability. *No cholelithiasis. No acute abnormalities identified. Minimal echogenic sludge within the gallbladder lumen. *Diffuse hepatic steatosis. Discharge Plan Discharge Clinical Impression: Nausea vomiting and diarrhea, Acute viral syndrome Patient Disposition: Home, Self-Care Instructions: Viral Syndrome (ED) Additional Instructions: Please follow-up with your primary care physician tomorrow. If you have any worsening or new symptoms, please return to the emergency room or call 911 Prescriptions: New ondansetron HCl [Zofran] 4 mg tablet 4 mg PO Q6H PRN (Reason: nausea and vomiting) Qty: 10 RF: 0 loperamide 2 mg tablet 2 mg PO Q4H PRN (Reason: loose stool) Qty: 10 RF: 0 No Action metformin 1,000 mg tablet 1,000 mg PO BID 30 Days Qty: 60 RF: 11 (DME) pen needle, diabetic [1st Tier Unifine Pentips] 31 gauge x 5/16 needle See Rx Instructions .ROUTE .MEDSUPPLY Qty: 1200 RF: 11 clotrimazole-betamethasone 1-0.05 % cream 1 appl topical BID 30 Days Qty: 45 RF: 0 lisinopril 5 mg tablet 5 mg PO DAILY 90 Days Qty: 90 RF: 1 doxycycline monohydrate 100 mg tablet 100 mg PO BID 7 Days Qty: 14 RF: 0 (DME) FreeStyle Test Strip See Rx Instructions .ROUTE .MEDSUPPLY Qty: 100 RF: 11 Ozempic 1 mg/dose (2 mg/1.5 mL) pen injector 1 mg subcut QWEEK 90 Days Qty: 9.75 RF: 1 Tresiba FlexTouch U-200 200 unit/mL (3 mL) insulin pen 80 unit subcut DAILY 30 Days Qty: 12 RF: 11 doxepin 25 mg capsule 25 mg PO BEDTIME RF: 0 (DME) pen needle, diabetic 31 gauge x 3/16 needle See Rx Instructions ea subcut .MEDSUPPLY Qty: 50 RF: 0 alcohol swabs Pads, Medicated topical QID RF: 0 escitalopram oxalate 10 mg tablet 10 mg PO DAILY RF: 0 (DME) pen needle, diabetic 32 gauge x 5/32 needle See Rx Instructions ea subcut QID Qty: 50 RF: 0 PMFSH Past Medical History Medical History Chronic hand pain Diabetes mellitus Essential hypertension Mild recurrent major depression Opioid dependence Primary insomnia Recurrent UTI Surgical History History of surgery Family History Family History Father No problems noted. Mother No problems noted. Maternal Grandmother Stomach cancer Sister No problems noted. Sister No problems noted. Brother No problems noted. Brother No problems noted. Son No problems noted. Son No problems noted. Daughter No problems noted. Daughter No problems noted. Social History Social History Housing: Apartment Alcohol intake: never Patient Tobacco Use Status: Never used Tobacco e-Cigarette/Vaping Use: Never Used Second Hand Smoke Exposure: No Use of substances other than those prescribed or required for medical reasons: No Advance Directives: No Advance Directives Information Provided: No Advance Directives Date on File: 09/15/20 service: No Current occupational status: unemployed
[2021-10-06] MEDS: ondansetron HCL 4 MG/2 ML VIAL IVPUSH (07:41)
[2021-10-06] MEDS: 0.9 % Sodium Chloride 1,000 ML 999 ML IVCONT (07:41)
[2021-10-06] MEDS: Loperamide HCl 2 MG CAPSULE 4 MG PO (07:41)
[2021-10-06 07:56] LABS: MANUAL DIFF FLAG NO
[2021-10-06 08:04] LABS: Basophils Percent Auto 0.3 % (0-2); Eosinophils Percent Auto 0.3 % (0-4); Hematocrit 48.5 % (42.0-52.0); Imm Gran Abs Auto 0.06 X10*3/uL (0.00-0.03); Imm Gran Pct Auto 0.8 % (0.0-0.4); Lymphocytes Absolute Auto 0.5 X10*3/uL (1.2-4.9); Mean Corpuscular HGB Conc 35.1 g/dl (31.0-36.0); Mean Corpuscular Hemoglobin 29.9 pg (27.0-33.0); Mean Corpuscular Volume 85.4 fL (80.0-98.0); Mean Platelet Volume 10.9 fL (9.4-12.4); Monocytes Absolute Auto 0.6 X10*3/uL (0.1-1.2); Monocytes Percent Auto 7.3 % (2-11); Neutrophils Absolute Auto 6.7 x10*3/uL (2.0-8.3); Neutrophils Percent Auto 85.3 % (45-73); Platelet Count 177 X10*3/uL (160-400); Red Blood Count 5.68 X10*6/uL (4.60-5.80); Red Cell Distribution Width 11.9 % (11.0-16.0); White Blood Count 7.8 X10*3/uL (4.8-10.8)
[2021-10-06 08:24] LABS: Alanine Aminotransferase 31 U/L (0-40); Albumin Level 4.2 g/dL (3.5-5.0); Alkaline Phosphatase 96 U/L (39-117); Anion Gap 12 (12-20); Aspartate Amino Transferase 27 U/L (5-37); Bilirubin Direct 0.7 mg/dL (0.0-0.5); Bilirubin Total 2.3 mg/dL (0.0-1.0); Blood Urea Nitrogen 13 mg/dL (9-16); Carbon Dioxide 28 mmol/L (22-29); Chloride 98 mmol/L (96-108); Creatinine Clr Calc Pharmacy 96.7; Estimated Glomerular Filt Rate > 60; Glucose Random 345 mg/dL (60-115); Lipase 21 U/L (8-78); Potassium 4.1 mmol/L (3.3-5.1); Sodium 134 mmol/L (135-145); Total Protein 7.2 g/dL (6.5-8.0)
[2021-10-06 08:41] LABS: Influenza A PCR NEGATIVE (Negative); Influenza B PCR NEGATIVE (Negative); Resp Syncy Virus RNA Qual PCR NEGATIVE (Negative); SARS COV2 PCR INHOUSE NEGATIVE (Negative)
== END 2021-10-06 11:36 | disposition home or self-care (01) ==
PROVIDERS: Emergency Provider Emergency Medicine; PCP Internal Medicine
DX: B34.9 Viral infection, unspecified (principal); R11.2 Nausea with vomiting, unspecified; R19.7 Diarrhea, unspecified; I10 Essential (primary) hypertension; E11.9 Type 2 diabetes mellitus without complications; F11.20 Opioid dependence, uncomplicated; Z20.822 Contact with and (suspected) exposure to COVID-19
CPT/HCPCS: 0241U; 36415; 76705; 80048; 80076; 83690; 85025; 96361; 96374; 99284; J2405

== ENCOUNTER 2022-02-11 15:29 | Outpatient (REF) | payer OTHER, SELFPAY ==
--- NOTE | ~2022-02-11 | XR_ITS ---
EXAMINATION: XR HAND, LEFT CLINICAL INFORMATION: Pain. History of puncture wound COMPARISON: Previous x-ray August 2021 TECHNIQUE: PA, lateral, and oblique views of the left hand. FINDINGS: The bones and soft tissues are normal. No fracture. Alignment is anatomic. Joint spaces are maintained. No erosions or soft tissue calcifications. XR/XR hand LT min 3V IMPRESSION: Normal left hand.
[2022-02-11 15:39] LABS: MANUAL DIFF FLAG NO
[2022-02-11 15:54] LABS: Basophils Absolute Auto 0.1 X10*3/uL (0.0-0.2); Basophils Percent Auto 0.5 % (0-2); Eosinophils Absolute Auto 0.1 X10*3/uL (0.0-0.4); Eosinophils Percent Auto 0.9 % (0-4); Hematocrit 49.5 % (42.0-52.0); Hemoglobin 17.2 g/dl (14.0-18.0); Imm Gran Abs Auto 0.07 X10*3/uL (0.00-0.03); Imm Gran Pct Auto 0.7 % (0.0-0.4); Mean Corpuscular HGB Conc 34.7 g/dl (31.0-36.0); Mean Corpuscular Hemoglobin 30.2 pg (27.0-33.0); Mean Corpuscular Volume 86.8 fL (80.0-98.0); Mean Platelet Volume 10.8 fL (9.4-12.4); Monocytes Absolute Auto 0.5 X10*3/uL (0.1-1.2); Neutrophils Absolute Auto 7.8 x10*3/uL (2.0-8.3); Neutrophils Percent Auto 73.9 % (45-73); Platelet Count 235 X10*3/uL (160-400); Red Cell Distribution Width 11.8 % (11.0-16.0); White Blood Count 10.5 X10*3/uL (4.8-10.8)
[2022-02-11 17:28] LABS: Creatinine Urine 40.51 mg/dL; Microalbum/Creatinine Ratio Ur 49.3 ug/mg cr
== END 2022-02-11 15:30 | disposition home or self-care (01) ==
LOC: HO.LAB 15:29
PROVIDERS: PCP Internal Medicine; Visit Provider Nurse Practitioner Family
DX: S69.92XA Unspecified injury of left wrist, hand and finger(s), initial encounter (principal); R20.0 Anesthesia of skin; R20.2 Paresthesia of skin; E11.9 Type 2 diabetes mellitus without complications; I10 Essential (primary) hypertension
CPT/HCPCS: 36415; 73130; 82043; 85025

== ENCOUNTER → 2022-02-16 10:55 | Outpatient (BNVA) | payer OTHER, SELFPAY | PROVIDERS: PCP Internal Medicine; Visit Provider Nurse Practitioner Family | DX: M62.838 Other muscle spasm (principal); M79.641 Pain in right hand; R20.2 Paresthesia of skin; G89.29 Other chronic pain; Z89.021 Acquired absence of right finger(s) | CPT/HCPCS: 99202 ==

== ENCOUNTER → 2022-03-16 11:20 | Outpatient (BNVA) | payer OTHER, SELFPAY | PROVIDERS: PCP Internal Medicine; Visit Provider Nurse Practitioner Family | DX: M62.838 Other muscle spasm (principal); M79.641 Pain in right hand; G89.29 Other chronic pain; R20.2 Paresthesia of skin; Z79.899 Other long term (current) drug therapy; Z89.021 Acquired absence of right finger(s) | CPT/HCPCS: 99212 ==

== ENCOUNTER 2022-05-19 06:00 | Emergency (ER) | payer OTHER, SELFPAY ==
[2022-05-19 06:15] VITALS: BP 128/86; PULSE 96; RESP 18; TEMP 36.6; O2SAT 99; BMI 24.2
--- NOTE | 2022-05-19 08:33 | ED_ITS ---
HPI - Ear Problem General Chief complaint: Ear Problems Stated complaint: ear pain Time Seen by Provider: 05/19/22 08:17 Source: patient Mode of arrival: ambulatory History of Present Illness HPI Narrative: 41-year-old male with a past medical history of diabetes, HTN, opiate dependence, recurrent UTIs, insomnia, presenting to the ED complaining of bilateral ear pain worse on the left radiating to the throat/head since yesterday. Reports pain with swallowing, chills, and subjective fever last night. Denies drainage from ear, hearing loss, inability to swallow, sick contacts, recent travel, cough, SOB/CP MD Complaint: ear pain Location: bilateral Duration: constant Related Data Home Medications Medication Instructions Recorded Confirmed pen needle, diabetic 31 gauge x #50 ea 09/12/20 03/16/2212/23 alcohol swabs pad topical QID 10/15/20 03/16/22 pen needle, diabetic 32 gauge x #50 ea 10/15/20 03/16/22 insulin degludec 200 unit/mL (3 65 unit subcut BID 02/11/22 03/16/22 mL) subcutaneous pen (Tresiba FlexTouch U-200 insulin) Previous Rx's Medication Instructions Recorded pen needle, diabetic 31 gauge x #1,200 ea 07/23/2002/22 (1st Tier Unifine Pentips) clotrimazole-betamethasone 1 1 appl topical BID 30 days #45 07/30/21 %-0.05 % topical cream grams blood sugar diagnostic (FreeStyle #100 ea 01/13/22 Test strips) semaglutide 0.25 mg or 0.5 mg (2 0.25 mg (0.2 mL) subcut QWEEK #1.5 02/11/22 mg/1.5 mL) subcutaneous pen mL injector (Ozempic) metformin 500 mg tablet,extended 500 mg PO BID #60 tabs 03/11/22 release 24hr venlafaxine 37.5 mg tablet 37.5 mg PO DAILY #30 tabs 03/11/22 naproxen 500 mg tablet 500 mg PO BID PRN pain #20 tabs 03/16/22 tizanidine 2 mg tablet 2 mg PO BID PRN muscle spasticity 03/16/22 #60 tabs Allergies Allergy/AdvReac Type Severity Reaction Status Date / Time empagliflozin Allergy Intermediate Headache, Verified 03/16/22 11:28 weight loss escitalopram Allergy Intermediate ineffective Verified 03/16/22 11:28 hydroxyzine AdvReac Intermediate Anxiety Verified 03/16/22 11:28 lisinopril AdvReac Intermediate Headache Verified 03/16/22 11:28 Review of Systems Review of Systems: Constitutional: +subj Fever, + Chills ENT/Mouth: No Ear Pain, No Nasal Congestion, No Hoarseness, + sore throat, No Rhinorrhea, No Swallowing Difficulty Cardiovascular: No Chest Pain, No SOB Respiratory: No Cough, No Sputum, No Wheezing Gastrointestinal: No Nausea, No Vomiting, No Diarrhea, No Constipation, No Abdominal pain Genitourinary: No Dysuria, No Urinary Frequency, No Hematuria, No Urinary Incontinence/retention, No Flank Pain Musculoskeletal: No joint pain, No Myalgias, No Joint Swelling Skin: No Skin Lesions, No rash Neuro: No Weakness, No Numbness Yes all other systems are reviewed and are negative Constitutional: Constitutional: Reports as per [facility] Past Medical History Attestation statement: The following information was validated with the patient. Medical History Chronic hand pain Diabetes mellitus Essential hypertension Mild recurrent major depression Opioid dependence Primary insomnia Recurrent UTI Surgical History History of surgery Family History Family History Father No problems noted. Mother No problems noted. Maternal Grandmother Stomach cancer Sister No problems noted. Sister No problems noted. Brother No problems noted. Brother No problems noted. Son No problems noted. Son No problems noted. Daughter No problems noted. Daughter No problems noted. Social History Social History Housing: Apartment Alcohol intake: never Patient Tobacco Use Status: Never used Tobacco e-Cigarette/Vaping Use: Never Used Second Hand Smoke Exposure: No Advance Directives: No Advance Directives Information Provided: No Advance Directives Date on File: 09/15/20 service: No Current occupational status: unemployed Cognitive needs: No Hearing needs: No Vision needs: No Physical Exam Vital Signs: Vital Signs: Last Vital Signs Temp 97.8 F 05/19/22 06:15 Pulse 96 05/19/22 06:15 Resp 18 05/19/22 06:15 BP 128/86 05/19/22 06:15 Pulse Ox 99 05/19/22 06:15 O2 Del Method 05/19/22 06:15 BMI result Body Mass Index 24.2 Const: General: cooperative, healthy appearing, no acute distress, alert and awake Orientation/consciousness: patient oriented x3 Limitations: no limitations HEENT: Head: Yes normal to inspection and Yes atraumatic Ears: hearing grossly normal bilaterally, external ears normal, TM's normal bilaterally and mastoids normal General nose exam: Normal external nose present Face and sinus: Yes normal facial exam Mouth: Normal oral and palatal mucosa present Throat: Yes posterior oropharynx normal, Yes tonsils normal, Yes uvula midline, No peritonsillar mass, No uvula laterally displaced and No uvular edema Eyes: General: appearance normal, both eyes and all related structures EOM: EOMs intact bilaterally Neck: Other: + bilateral submandibular lymphadenopathy Neck: Yes normal visual inspection, Yes no meningeal signs and No anterior neck swelling Resp: Effort & Inspection: normal respiratory effort, no respiratory distress, no stridor and not tachypneic Auscultation: clear to auscultation bilaterally Cardio: Rate: regular rate Heart sounds: S1 normal heart sound present and S2 normal heart sound present GI: Inspection: Yes normal to inspection : General: Yes no CVA tenderness Back/Spine/Pelvis: Back: no CVA tenderness Skin: Rashes: no rashes Wounds: no wounds Neuro: General: patient oriented x3, tone normal and no meningeal signs Gait exam (Neuro): Normal gait present Extrem: General: Yes normal to inspection Course Course Course Narrative: COVID-19 and rapid strep negative. 0955--patient eloped the ED prior to results MDM - Ear MDM Narrative Medical decision making narrative: 41-year-old male with a past medical history of diabetes, HTN, opiate dependence, recurrent UTIs, insomnia, presenting to the ED complaining of bilateral ear pain worse on the left radiating to the throat/head since yesterday. Reports pain with swallowing, chills, and subjective fever last night. On exam afebrile, NAD, nontoxic appearing, TMs WNL bilaterally, mastoids WNL, oropharynx without appreciable swelling or exudates. Talking in complete sentences/no respiratory distress. + bilateral submandibular lymphadenopathy. concern for viral illness/pharyngitis. No evidence of otitis media cyst externa on exam or strep pharyngitis clinically. Lower suspicion for mono. No evidence of HOOP EXPANDER Plan: COVID-19 and rapid strep test Differential Diagnosis Differential diagnosis: Likely otitis externa and otitis media Medical Records Attestation: I reviewed the patient's medical records. Lab Data Attestation: I reviewed the patient's lab results. Labs: Lab Results 05/19/22 05/19/22 Range/Units 09:04 09:04 COVID-19 ([facility]) Negative (Negative) COVID-19 Clin Com See Note S. pyogenes GrpA HENRY Negative (Negative) Discharge Plan Discharge Clinical Impression: Acute viral syndrome Patient Disposition: Elopement Instructions: Viral Syndrome (ED) Additional Instructions: You tested negative for COVID-19 and strep throat. Rest. Stay hydrated. Prescriptions: No Action (DME) pen needle, diabetic [1st Tier Unifine Pentips] 31 gauge x 5/16 needle See Rx Instructions .ROUTE .MEDSUPPLY Qty: 1200 11RF Rx Instructions: Use pen needle once a day clotrimazole-betamethasone 1-0.05 % cream 1 appl topical BID 30 Days Qty: 45 0RF (DME) FreeStyle Test Strip See Rx Instructions .ROUTE .MEDSUPPLY Qty: 100 11RF Rx Instructions: Use 1 test strip twice a day metformin 500 mg tablet extended release 24hr 500 mg PO BID Qty: 60 6RF venlafaxine 37.5 mg tablet 37.5 mg PO DAILY Qty: 30 6RF Tresiba FlexTouch U-200 200 unit/mL (3 mL) insulin pen 65 unit subcut BID Ozempic 0.25 mg or 0.5 mg(2 mg/1.5 mL) pen injector 0.25 mg subcut QWEEK Qty: 1.5 2RF Rx Instructions: for 4 doses (DME) pen needle, diabetic 31 gauge x 3/16 needle See Rx Instructions subcut .MEDSUPPLY Qty: 50 Rx Instructions: As directed alcohol swabs Pads, Medicated topical QID (DME) pen needle, diabetic 32 gauge x 5/32 needle See Rx Instructions subcut QID Qty: 50 Rx Instructions: As directed naproxen 500 mg tablet 500 mg PO BID PRN (Reason: pain) Qty: 20 0RF tizanidine 2 mg tablet 2 mg PO BID PRN (Reason: muscle spasticity) Qty: 60 3RF
[2022-05-19 09:20] LABS: Strep A Nucleic Acid Negative (Negative)
[2022-05-19 09:41] LABS: COVID-19 Test Negative (Negative); IDNOW Serial# 16C4AD1C
== END 2022-05-19 10:10 | disposition left against medical advice (07) ==
PROVIDERS: Physician Assistant; Emergency Provider Internal Medicine; PCP Internal Medicine
DX: B34.9 Viral infection, unspecified (principal); H92.03 Otalgia, bilateral; Z20.822 Contact with and (suspected) exposure to COVID-19; J02.9 Acute pharyngitis, unspecified; E11.9 Type 2 diabetes mellitus without complications; I10 Essential (primary) hypertension; Z79.4 Long term (current) use of insulin
CPT/HCPCS: 87635; 87651; 99283

== ENCOUNTER → 2022-08-27 08:05 | Outpatient (BNVA) | payer OTHER, SELFPAY | PROVIDERS: PCP Internal Medicine; Visit Provider Internal Medicine Endocrinology, Diabetes & Metabolism | DX: E11.65 Type 2 diabetes mellitus with hyperglycemia (principal); Z79.4 Long term (current) use of insulin | CPT/HCPCS: 82947; 83036; 96372; 99212; J1815 ==

== ENCOUNTER 2022-08-27 09:03 | Emergency (ER) | payer OTHER, SELFPAY ==
--- NOTE | 2022-08-27 09:16 | ED.GENADULT ---
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 Patient was there for follow-up and to get restarted on his medications. He admits that depression has led him to be noncompliant with his meds. He presented to the storage facility housekeeper today to get a fresh start and get back on track. Per report his initial point of care was greater than 500, he was given 12 units of insulin by the doctor and 300 cc of IV fluids by EMS. Patient admits to polyuria and polydipsia. No fever or chills, chest pain. MD complaint: elevated glucose Onset (ago): unknown Severity: moderate Pain Consistency: intermittent Relieving factors: none Exacerbating factors: none Associated symptoms: other (Polyuria polydipsia, depression) Treatments prior to arrival: other (Insulin and IV fluids) Related Data Home Medications Medication Instructions Recorded Confirmed pen needle, diabetic 31 gauge x #50 ea 09/12/20 03/16/2212/23 alcohol swabs pad topical QID 10/15/20 03/16/22 pen needle, diabetic 32 gauge x #50 ea 10/15/20 03/16/22 insulin degludec 200 unit/mL (3 65 unit subcut BID 02/11/22 03/16/22 mL) subcutaneous pen (Tresiba FlexTouch U-200 insulin) Previous Rx's Medication Instructions Recorded pen needle, diabetic 31 gauge x #1,200 ea 07/23/2002/22 (1st Tier Unifine Pentips) clotrimazole-betamethasone 1 1 appl topical BID 30 days #45 07/30/21 %-0.05 % topical cream grams blood sugar diagnostic (FreeStyle #100 ea 01/13/22 Test strips) semaglutide 0.25 mg or 0.5 mg (2 0.25 mg (0.2 mL) subcut QWEEK #1.5 02/11/22 mg/1.5 mL) subcutaneous pen mL injector ([employer]) metformin 500 mg tablet,extended 500 mg PO BID #60 tabs 03/11/22 release 24hr venlafaxine 37.5 mg tablet 37.5 mg PO DAILY #30 tabs 03/11/22 naproxen 500 mg tablet 500 mg PO BID PRN pain #20 tabs 03/16/22 tizanidine 2 mg tablet 2 mg PO BID PRN muscle spasticity 03/16/22 #60 tabs blood-glucose meter (FreeStyle #1 ea 08/27/22 Humphrey Lite kit) Allergies Allergy/AdvReac Type Severity Reaction Status Date / Time empagliflozin Allergy Intermediate Headache, Verified 08/27/22 08:16 weight loss escitalopram Allergy Intermediate ineffective Verified 08/27/22 08:16 hydroxyzine AdvReac Intermediate Anxiety Verified 08/27/22 08:16 lisinopril AdvReac Intermediate Headache Verified 08/27/22 08:16 Review of Systems Review of Systems: Constitutional: No Fever, No Chills ENT/Mouth: No sore throat, No Rhinorrhea Eyes: No Eye Pain, No Swelling, No Redness, No vision changes Cardiovascular: No Chest Pain, No SOB, No Orthopnea, No Edema Respiratory: No Cough, No Sputum, No Wheezing, No dyspnea Gastrointestinal: No Nausea, No Vomiting, No Diarrhea, No abdominal Pain Genitourinary: No Dysuria, No Urinary Frequency, No Hematuria Musculoskeletal: No joint pain, No Myalgias Skin: No Skin Lesions, No rash Neuro: No Weakness, + Numbness, No Dizziness, No Headache Psych: No Anxiety/Panic, +Depression, NO SI Heme/Lymph: No Bruising, No Lymphadenopathy Endocrine: + Polyuria, + Polydipsia PMFSH Past Medical History Medical History Chronic hand pain Diabetes mellitus Essential hypertension Mild recurrent major depression Opioid dependence Primary insomnia Recurrent UTI Surgical History History of surgery Family History Family History Father No problems noted. Mother No problems noted. Maternal Grandmother Stomach cancer Sister No problems noted. Sister No problems noted. Brother No problems noted. Brother No problems noted. Son No problems noted. Son No problems noted. Daughter No problems noted. Daughter No problems noted. Social History Social History Housing: Apartment Alcohol intake: never Patient Tobacco Use Status: Never used Tobacco Smoked in Last 30 Days: No e-Cigarette/Vaping Use: Never Used Second Hand Smoke Exposure: No Use of substances other than those prescribed or required for medical reasons: No Advance Directives: No Advance Directives Information Provided: Yes Advance Directives Date on File: 09/15/20 service: No Current occupational status: unemployed Cognitive needs: No Hearing needs: No Vision needs: No Physical Exam ED Vital Signs: Vital Signs - 24 hr 08/27/22 09:31 08/27/22 09:50 08/27/22 11:02 Temperature 98.4 F 98.4 F 98.4 F Pulse Rate 71 65 64 Respiratory Rate 14 12 13 Blood Pressure 97/62 143/82 H 109/75 Pulse Oximetry 100 100 99 Oxygen Delivery Method Room Air Room Air Room Air BMI result Body Mass Index 21.6 Appearance: Alert. Oriented X3. No acute distress. Eyes: Pupils equal, round and reactive to light. ENT: Pharynx normal. Neck: Normal inspection. Neck supple. CVS: Normal heart rate and rhythm. Pulses normal. Respiratory: No respiratory distress. Breath sounds normal. No Kussmaul breathing pattern Abdomen: Soft and nontender. +BS x4 Skin: Skin warm and dry. Normal skin color. Normal skin turgor. No rashes. Extremities: No lower extremity edema. Neuro: Oriented X 3. No motor deficit. + sensory deficit subjective of bilateral hands and feet consistent with probable diabetic neuropathy Course Course Course Narrative: 42-year-old male with history of diabetes, previously prescribed insulin and metformin who presents to the ER for evaluation of hyperglycemia in the setting of insulin noncompliance. Initial point of care greater than 500. He was given insulin and fluids prior to arrival. He clinically does not appear to be in DKA but will rule this out with lab workup. Will plan to aggressively hydrate with IV fluids, check lab workup and reassess. Reevaluation(s) Reevaluation #1: Point of care in the 300s. Patient was given 2 L IV fluids. His serum glucose is improved to 151. His hemoglobin A1c is 13 point 9 with an estimated glucose of 352. Case was discussed with Dr. Coburn, the storage facility housekeeper who sent him to the ER - recommending he reinitiate his previously prescribed Tresiba and Ozempic as well as metformin. Patient agrees with plan. He will follow up with his storage facility housekeeper and primary care doctor. We discussed his depression contributing to his medical noncompliance. He states Charlene Ledbetter PCP has started him on medications for this in the past and he will follow back up with her. No SI or HI. Medications Administered Discontinued Medications Generic Name Dose Route Start Last Admin Trade Name Freq PRN Reason Stop Dose Admin Lactated Ringer's 1,000 mls @ 999 mls/hr 08/27/22 09:15 08/27/22 12:00 Lr IV 08/27/22 10:15 Infused .Q1H1M PATRIA Infusion Lactated Ringer's 1,000 mls @ 999 mls/hr 08/27/22 09:45 08/27/22 11:26 Lr IV 08/27/22 10:45 999 mls/hr .Q1H1M PATRIA Administration Medical Decision Making Lab Data Result diagrams: 08/27/22 10:27 08/27/22 10:27 Labs: Lab Results 08/27/22 08/27/22 08/27/22 Range/Units 09:23 10:27 10:27 WBC 8.4 (4.8-10.8) X10*3/uL RBC 5.62 (4.60-5.80) X10*6/uL Hgb 17.0 (14.0-18.0) g/dl Hct 49.4 (42.0-52.0) % MCV 87.9 (80.0-98.0) fL MCH 30.2 (27.0-33.0) pg MCHC 34.4 (31.0-36.0) g/dl RDW 11.7 (11.0-16.0) % Plt Count 234 (160-400) X10*3/uL MPV 10.4 (9.4-12.4) fL Immature Gran % (Auto) 0.2 (0.0-0.4) % Neut % (Auto) 72.9 (45-73) % Lymph % (Auto) 20.0 (20-40) % Sumner % (Auto) 5.6 (2-11) % Eos % (Auto) 0.7 (0-4) % Baso % (Auto) 0.6 (0-2) % Lymph # (Auto) 1.7 (1.2-4.9) X10*3/uL Sumner # (Auto) 0.5 (0.1-1.2) X10*3/uL Eos # (Auto) 0.1 (0.0-0.4) X10*3/uL Baso # (Auto) 0.1 (0.0-0.2) X10*3/uL Abs Immat Gran (auto) 0.02 (0.00-0.03) X10*3/uL Absolute Neuts (auto) 6.1 (2.0-8.3) x10*3/uL Absolute Nucleated RBC 0.000 (0.0-0.012) X10*3/uL Nucleated RBC % (auto) 0.0 (0.0-0.2) /100WBC VBG pH (7.32-7.43) VBG pCO2 mmHg VBG pO2 mmHg VBG HCO3 (22-26) mmol/L VBG O2 Saturation % VBG Base Excess mmol/L Sodium 142 (135-145) mmol/L Potassium 4.0 (3.3-5.1) mmol/L Chloride 103 (96-108) mmol/L Carbon Dioxide 30 H (22-29) mmol/L Anion Gap 13 (12-20) BUN 12 (9-16) mg/dL Creatinine 0.78 (0.5-1.4) mg/dL Estim Creat Clear Calc 104.9 Estimated GFR > 60 POC Glucose 393 H* (60-115) mg/dL Random Glucose 151 H D (60-115) mg/dL Estimat Average Glucose mg/dL Hemoglobin A1c % % Lactic Acid (0.5-2.0) mmol/L Calcium 9.1 (8.4-10.2) mg/dL Magnesium 2.0 (1.6-2.6) mg/dL Total Bilirubin 1.0 (0.0-1.0) mg/dL Direct Bilirubin 0.4 (0.0-0.5) mg/dL AST 11 D (5-37) U/L ALT 18 (0-40) U/L Alkaline Phosphatase 109 (39-117) U/L Total Protein 6.3 L (6.5-8.0) g/dL Albumin 3.9 (3.5-5.0) g/dL Urine Color Urine Appearance Urine pH (5.0-9.0) Ur Specific [place] (1.005-1.025) Urine Protein (Neg-Trace) mg/dL Urine Glucose (UA) (Negative) mg/dL Urine Ketones (Negative) mg/dL Urine Blood (Negative) Urine Nitrite (Negative) Ur Leukocyte Esterase (Negative) Urine RBC (0-2) /HPF Urine WBC (0-5) /HPF Ur Squamous Epith Cells (0-2) /HPF Urine Bacteria (None Seen) Hyaline Casts (0-2) /LPF COVID-19 ([facility]) (Negative) COVID-19 Clin Com 08/27/22 08/27/22 08/27/22 Range/Units 10:27 10:27 10:28 WBC (4.8-10.8) X10*3/uL RBC (4.60-5.80) X10*6/uL Hgb (14.0-18.0) g/dl Hct (42.0-52.0) % MCV (80.0-98.0) fL MCH (27.0-33.0) pg MCHC (31.0-36.0) g/dl RDW (11.0-16.0) % Plt Count (160-400) X10*3/uL MPV (9.4-12.4) fL Immature Gran % (Auto) (0.0-0.4) % Neut % (Auto) (45-73) % Lymph % (Auto) (20-40) % Sumner % (Auto) (2-11) % Eos % (Auto) (0-4) % Baso % (Auto) (0-2) % Lymph # (Auto) (1.2-4.9) X10*3/uL Sumner # (Auto) (0.1-1.2) X10*3/uL Eos # (Auto) (0.0-0.4) X10*3/uL Baso # (Auto) (0.0-0.2) X10*3/uL Abs Immat Gran (auto) (0.00-0.03) X10*3/uL Absolute Neuts (auto) (2.0-8.3) x10*3/uL Absolute Nucleated RBC (0.0-0.012) X10*3/uL Nucleated RBC % (auto) (0.0-0.2) /100WBC VBG pH (7.32-7.43) VBG pCO2 mmHg VBG pO2 mmHg VBG HCO3 (22-26) mmol/L VBG O2 Saturation % VBG Base Excess mmol/L Sodium (135-145) mmol/L Potassium (3.3-5.1) mmol/L Chloride (96-108) mmol/L Carbon Dioxide (22-29) mmol/L Anion Gap (12-20) BUN (9-16) mg/dL Creatinine (0.5-1.4) mg/dL Estim Creat Clear Calc Estimated GFR POC Glucose (60-115) mg/dL Random Glucose (60-115) mg/dL Estimat Average Glucose 352 mg/dL Hemoglobin A1c % 13.9 % Lactic Acid 2.0 (0.5-2.0) mmol/L Calcium (8.4-10.2) mg/dL Magnesium (1.6-2.6) mg/dL Total Bilirubin (0.0-1.0) mg/dL Direct Bilirubin (0.0-0.5) mg/dL AST (5-37) U/L ALT (0-40) U/L Alkaline Phosphatase (39-117) U/L Total Protein (6.5-8.0) g/dL Albumin (3.5-5.0) g/dL Urine Color Urine Appearance Urine pH (5.0-9.0) Ur Specific [place] (1.005-1.025) Urine Protein (Neg-Trace) mg/dL Urine Glucose (UA) (Negative) mg/dL Urine Ketones (Negative) mg/dL Urine Blood (Negative) Urine Nitrite (Negative) Ur Leukocyte Esterase (Negative) Urine RBC (0-2) /HPF Urine WBC (0-5) /HPF Ur Squamous Epith Cells (0-2) /HPF Urine Bacteria (None Seen) Hyaline Casts (0-2) /LPF COVID-19 ([facility]) Negative (Negative) COVID-19 Clin Com See Note 08/27/22 08/27/22 Range/Units 10:29 10:33 WBC (4.8-10.8) X10*3/uL RBC (4.60-5.80) X10*6/uL Hgb (14.0-18.0) g/dl Hct (42.0-52.0) % MCV (80.0-98.0) fL MCH (27.0-33.0) pg MCHC (31.0-36.0) g/dl RDW (11.0-16.0) % Plt Count (160-400) X10*3/uL MPV (9.4-12.4) fL Immature Gran % (Auto) (0.0-0.4) % Neut % (Auto) (45-73) % Lymph % (Auto) (20-40) % Sumner % (Auto) (2-11) % Eos % (Auto) (0-4) % Baso % (Auto) (0-2) % Lymph # (Auto) (1.2-4.9) X10*3/uL Sumner # (Auto) (0.1-1.2) X10*3/uL Eos # (Auto) (0.0-0.4) X10*3/uL Baso # (Auto) (0.0-0.2) X10*3/uL Abs Immat Gran (auto) (0.00-0.03) X10*3/uL Absolute Neuts (auto) (2.0-8.3) x10*3/uL Absolute Nucleated RBC (0.0-0.012) X10*3/uL Nucleated RBC % (auto) (0.0-0.2) /100WBC VBG pH 7.34 (7.32-7.43) VBG pCO2 52 mmHg VBG pO2 32 mmHg VBG HCO3 28 H (22-26) mmol/L VBG O2 Saturation 52.0 % VBG Base Excess 1.9 mmol/L Sodium (135-145) mmol/L Potassium (3.3-5.1) mmol/L Chloride (96-108) mmol/L Carbon Dioxide (22-29) mmol/L Anion Gap (12-20) BUN (9-16) mg/dL Creatinine (0.5-1.4) mg/dL Estim Creat Clear Calc Estimated GFR POC Glucose (60-115) mg/dL Random Glucose (60-115) mg/dL Estimat Average Glucose mg/dL Hemoglobin A1c % % Lactic Acid (0.5-2.0) mmol/L Calcium (8.4-10.2) mg/dL Magnesium (1.6-2.6) mg/dL Total Bilirubin (0.0-1.0) mg/dL Direct Bilirubin (0.0-0.5) mg/dL AST (5-37) U/L ALT (0-40) U/L Alkaline Phosphatase (39-117) U/L Total Protein (6.5-8.0) g/dL Albumin (3.5-5.0) g/dL Urine Color Yellow Urine Appearance Clear Urine pH 5.5 (5.0-9.0) Ur Specific [place] >= 1.030 H (1.005-1.025) Urine Protein Negative (Neg-Trace) mg/dL Urine Glucose (UA) >=1000 H (Negative) mg/dL Urine Ketones Trace (Negative) mg/dL Urine Blood Negative (Negative) Urine Nitrite Negative (Negative) Ur Leukocyte Esterase Negative (Negative) Urine RBC 0-2 (0-2) /HPF Urine WBC 0-5 (0-5) /HPF Ur Squamous Epith Cells 0-2 (0-2) /HPF Urine Bacteria None Seen (None Seen) Hyaline Casts 0-2 (0-2) /LPF COVID-19 ([facility]) (Negative) COVID-19 Clin Com Critical Care Time Critical Care Time Critical Care Time: Yes Total Critical Care Time: 35 Attestation: I have personally provided critical care time exclusive of time spent on separately billable procedures. Time includes review of lab data, radiology results, discussion with consultants, and monitoring for potential decompensation. Intervention performed as documented. Discharge Plan Discharge Clinical Impression: Hyperglycemia Patient Disposition: Home, Self-Care Instructions: Diabetic Hyperglycemia (ED) Additional Instructions: Your hemoglobin A1c today is 13.9%. GOAL IS <7%. This is a reflection of your blood sugar over the last 3 months with an estimated average glucose of 359. It is very important that you take your previously prescribed Triceba every day and your Ozempic time per week. Take metform 1000 mg two times per day. This is what your endocrine doctor is recommending. Follow-up with endocrinology. Follow-up with your primary care doctor as well to talk about your depression and explore other treatment options. If you develop new or worsening symptoms call 911 or come back to the ER for further evaluation. Prescriptions: No Action (DME) pen needle, diabetic [1st Tier Unifine Pentips] 31 gauge x 5/16 needle See Rx Instructions .ROUTE .MEDSUPPLY Qty: 1200 11RF Rx Instructions: Use pen needle once a day clotrimazole-betamethasone 1-0.05 % cream 1 appl topical BID 30 Days Qty: 45 0RF (DME) FreeStyle Test Strip See Rx Instructions .ROUTE .MEDSUPPLY Qty: 100 11RF Rx Instructions: Use 1 test strip twice a day metformin 500 mg tablet extended release 24hr 500 mg PO BID Qty: 60 6RF venlafaxine 37.5 mg tablet 37.5 mg PO DAILY Qty: 30 6RF Tresiba FlexTouch U-200 200 unit/mL (3 mL) insulin pen 65 unit subcut BID Ozempic 0.25 mg or 0.5 mg(2 mg/1.5 mL) pen injector 0.25 mg subcut QWEEK Qty: 1.5 2RF Rx Instructions: for 4 doses (DME) pen needle, diabetic 31 gauge x 3/16 needle See Rx Instructions subcut .MEDSUPPLY Qty: 50 Rx Instructions: As directed alcohol swabs Pads, Medicated topical QID (DME) pen needle, diabetic 32 gauge x 5/32 needle See Rx Instructions subcut QID Qty: 50 Rx Instructions: As directed (DME) blood-glucose meter [FreeStyle Humphrey Lite] Kit See Rx Instructions .Route Qty: 1 0RF Rx Instructions: As directed checks 4 X/day naproxen 500 mg tablet 500 mg PO BID PRN (Reason: pain) Qty: 20 0RF tizanidine 2 mg tablet 2 mg PO BID PRN (Reason: muscle spasticity) Qty: 60 3RF Referrals: [facility] [Provider Group] Charlene Cramer MD [Primary Care Provider] - (Depression, uncontrolled diabetes, noncompliance)
[2022-08-27 09:31] VITALS: BP 97/62; PULSE 71; RESP 14; TEMP 36.9; O2SAT 100
[2022-08-27 09:36] LABS: Glucose, Whole Blood 393 mg/dL (60-115)
[2022-08-27 09:50] VITALS: BP 134/66; BP 143/82; PULSE 65; PULSE 72; RESP 12; TEMP 36.9; O2SAT 100; O2SAT 99; BMI 21.6
[2022-08-27] MEDS: Lactated Ringers 1,000 ML 999 ML IV ×2 (10:16→11:26)
[2022-08-27 10:35] LABS: MANUAL DIFF FLAG NO
[2022-08-27 10:37] LABS: Basophils Absolute Auto 0.1 X10*3/uL (0.0-0.2); Basophils Percent Auto 0.6 % (0-2); Eosinophils Absolute Auto 0.1 X10*3/uL (0.0-0.4); Eosinophils Percent Auto 0.7 % (0-4); Hematocrit 49.4 % (42.0-52.0); Imm Gran Abs Auto 0.02 X10*3/uL (0.00-0.03); Imm Gran Pct Auto 0.2 % (0.0-0.4); Lymphocytes Absolute Auto 1.7 X10*3/uL (1.2-4.9); Mean Corpuscular HGB Conc 34.4 g/dl (31.0-36.0); Mean Corpuscular Hemoglobin 30.2 pg (27.0-33.0); Mean Corpuscular Volume 87.9 fL (80.0-98.0); Mean Platelet Volume 10.4 fL (9.4-12.4); Monocytes Absolute Auto 0.5 X10*3/uL (0.1-1.2); Monocytes Percent Auto 5.6 % (2-11); Neutrophils Absolute Auto 6.1 x10*3/uL (2.0-8.3); Neutrophils Percent Auto 72.9 % (45-73); Platelet Count 234 X10*3/uL (160-400); Red Blood Count 5.62 X10*6/uL (4.60-5.80); Red Cell Distribution Width 11.7 % (11.0-16.0); Venous Blood Gas Refer to POC result; White Blood Count 8.4 X10*3/uL (4.8-10.8)
[2022-08-27 10:38] LABS: Appearance Urine Clear; Color Urine Yellow; Glucose Urine UA >=1000 mg/dL (Negative); Leukocyte Esterase Urine Negative (Negative); Nitrite Urine Negative (Negative); PH 5.5 (5.0-9.0); Specific Gravity - Urine >= 1.030 (1.005-1.025); UMIC TRIGGER UACC YES; Urine Blood Negative (Negative); Urine Ketones Trace mg/dL (Negative); Urine Protein Negative (Neg-Trace)
[2022-08-27 10:39] LABS: VBG Base Excess 1.9 mmol/L; VBG HCO3 28 mmol/L (22-26); VBG pCO2 52 mmHg; VBG pH 7.34 (7.32-7.43); VBG pO2 32 mmHg
[2022-08-27 10:43] LABS: Bacteria Urine None Seen (None Seen); Hyaline Casts Urine 0-2 /LPF (0-2); RBC Urine 0-2 /HPF (0-2); Squamous Epithelial Cell Urine 0-2 /HPF (0-2); WBC Urine 0-5 /HPF (0-5)
[2022-08-27 10:59] LABS: COVID-19 Test Negative (Negative); IDNOW Serial# 55D5AD1C
[2022-08-27 11:02] VITALS: BP 109/75; PULSE 64; RESP 13; TEMP 36.9; O2SAT 99
[2022-08-27 11:17] LABS: Alanine Aminotransferase 18 U/L (0-40); Alkaline Phosphatase 109 U/L (39-117); Anion Gap 13 (12-20); Aspartate Amino Transferase 11 U/L (5-37); Bilirubin Direct 0.4 mg/dL (0.0-0.5); Blood Urea Nitrogen 12 mg/dL (9-16); Calcium 9.1 mg/dL (8.4-10.2); Carbon Dioxide 30 mmol/L (22-29); Chloride 103 mmol/L (96-108); Creatinine Clr Calc Pharmacy 104.9; Estimated Glomerular Filt Rate > 60; Glucose Random 151 mg/dL (60-115); Sodium 142 mmol/L (135-145); Total Protein 6.3 g/dL (6.5-8.0)
[2022-08-27 11:22] LABS: Estimated Average Glucose 352 mg/dL; Hemoglobin A1c % 13.9 %
[2022-08-27 11:30] LABS: Albumin Level 3.9 g/dL (3.5-5.0)
[2022-08-27 12:48] LABS: Glucose, Whole Blood 102 mg/dL (60-115)
[2022-08-27 14:22] LABS: Acetone, serum QL Negative (Negative)
== END 2022-08-27 12:52 | disposition home or self-care (01) ==
PROVIDERS: Physician Assistant; Emergency Provider Emergency Medicine Emergency Medical Services; PCP Internal Medicine
DX: E11.65 Type 2 diabetes mellitus with hyperglycemia (principal); R35.89 Other polyuria; F33.1 Major depressive disorder, recurrent, moderate; Z20.822 Contact with and (suspected) exposure to COVID-19; Z79.4 Long term (current) use of insulin; Z79.899 Other long term (current) drug therapy
CPT/HCPCS: 36415; 80048; 80076; 81001; 82009; 82803; 82947; 83036; 83605; 83735; 85025; 87635; 96360; 99284

== ENCOUNTER 2022-12-06 09:29 | Outpatient (REF) | payer OTHER, SELFPAY ==
[2022-12-06 12:48] LABS: Creatinine Urine 149.97 mg/dL; Microalbum/Creatinine Ratio Ur 26.6 ug/mg cr
[2022-12-06 12:58] LABS: Alanine Aminotransferase 13 U/L (0-40); Albumin Level 4.3 g/dL (3.5-5.0); Alkaline Phosphatase 117 U/L (39-117); Anion Gap 14 (12-20); Aspartate Amino Transferase 22 U/L (5-37); Bilirubin Total 2.5 mg/dL (0.0-1.0); Blood Urea Nitrogen 13 mg/dL (9-16); Calcium 9.4 mg/dL (8.4-10.2); Carbon Dioxide 30 mmol/L (22-29); Chloride 99 mmol/L (96-108); Cholesterol 199 mg/dL; Estimated Glomerular Filt Rate > 60; Glucose Random 350 mg/dL (60-115); HDL Cholesterol 41 mg/dL; LDL Cholesterol Calculated 128 mg/dl; Potassium 4.4 mmol/L (3.3-5.1); Sodium 139 mmol/L (135-145); Total Protein 6.8 g/dL (6.5-8.0); Triglycerides 153 mg/dL
== END 2022-12-06 09:30 | disposition home or self-care (01) ==
LOC: HO.LAB 09:29
PROVIDERS: PCP Internal Medicine; Visit Provider Internal Medicine Endocrinology, Diabetes & Metabolism
DX: E11.65 Type 2 diabetes mellitus with hyperglycemia (principal)
CPT/HCPCS: 36415; 80053; 80061; 82043

== ENCOUNTER 2022-12-06 14:14 | Emergency (ER) | payer OTHER, SELFPAY ==
[2022-12-06 14:37] VITALS: BP 121/61; PULSE 93; RESP 18; TEMP 36.9; O2SAT 97; BMI 23.3
--- NOTE | 2022-12-06 14:38 | ED_ITS ---
HPI - General Adult General Chief complaint: General Medical Stated complaint: high bs Related Data Home Medications Medication Instructions Recorded Confirmed pen needle, diabetic 31 gauge x #50 ea 09/12/20 03/16/22 3/16 alcohol swabs pad topical QID 10/15/20 03/16/22 Previous Rx's Medication Instructions Recorded clotrimazole-betamethasone 1 1 appl topical BID 30 days #45 07/30/21 %-0.05 % topical cream grams blood sugar diagnostic (FreeStyle #100 ea 01/13/22 Test strips) semaglutide 0.25 mg or 0.5 mg (2 0.25 mg (0.2 mL) subcut QWEEK #1.5 02/11/22 mg/1.5 mL) subcutaneous pen mL injector ([employer]) venlafaxine 37.5 mg tablet 37.5 mg PO DAILY #30 tabs 03/11/22 tizanidine 2 mg tablet 2 mg PO BID PRN muscle spasticity 03/16/22 #60 tabs blood-glucose meter (FreeStyle #1 ea 08/27/22 [place] Lite kit) pen needle, diabetic 31 gauge x #50 ea 09/13/22 516 (1st Tier [employer] Pentips) pen needle, diabetic 32 gauge x #50 ea 09/13/22 5 insulin degludec 200 unit/mL (3 35 unit (0.175 mL) subcut BID 30 12/06/22 mL) subcutaneous pen ( #10.5 mL FlexTouch U-200 insulin) naproxen 500 mg tablet 500 mg PO BID PRN pain #20 tabs 12/06/22 metformin 500 mg tablet,extended 1,000 mg PO BID #120 tabs 12/07/22 release 24hr Allergies Allergy/AdvReac Type Severity Reaction Status Date / Time empagliflozin Allergy Intermediate Headache, Verified 08/27/22 08:16 weight loss escitalopram Allergy Intermediate ineffective Verified 08/27/22 08:16 hydroxyzine AdvReac Intermediate Anxiety Verified 08/27/22 08:16 lisinopril AdvReac Intermediate Headache Verified 08/27/22 08:16 [facility] Past Medical History Medical History Chronic hand pain Diabetes mellitus Essential hypertension Mild recurrent major depression Opioid dependence Primary insomnia Recurrent UTI Surgical History History of surgery Family History Family History Father No problems noted. Mother No problems noted. Maternal Grandmother Stomach cancer Sister No problems noted. Sister No problems noted. Brother No problems noted. Brother No problems noted. Son No problems noted. Son No problems noted. Daughter No problems noted. Daughter No problems noted. Social History Social History Housing: Apartment Alcohol intake: never Patient Tobacco Use Status: Never used Tobacco e-Cigarette/Vaping Use: Never Used Second Hand Smoke Exposure: No Advance Directives: No Advance Directives Information Provided: No Advance Directives Date on File: 09/15/20 service: No Current occupational status: unemployed Cognitive needs: No Hearing needs: No Vision needs: No Physical Exam ED Vital Signs: BMI result Body Mass Index 23.3 Course Course Course Narrative: RME - 42 yo male with history of DM2, depression/anxiety coming to the ER for evaluation of hyperglycemia of 350 on routine labs today in the setting of running out of his DM meds 1 week ago. AG normal, bicarb high. No evidence of DKA. He also reported to his doctor he was having some upper left chest pain and wasn't feeling well. told to come to the ER for further evaluation. Plan - EKG. med refill Discharge Plan Discharge Clinical Impression: Diabetes mellitus Patient Disposition: Elopement Prescriptions: No Action clotrimazole-betamethasone 1-0.05 % cream 1 appl topical BID 30 Days Qty: 45 0RF (DME) FreeStyle Test Strip See Rx Instructions .ROUTE .MEDSUPPLY Qty: 100 11RF Rx Instructions: Use 1 test strip twice a day venlafaxine 37.5 mg tablet 37.5 mg PO DAILY Qty: 30 6RF (DME) pen needle, diabetic [1st Tier [employer] Pentips] 31 gauge x 5/16 needle See Rx Instructions .ROUTE .MEDSUPPLY Qty: 50 3RF Rx Instructions: Use pen needle once a day (DME) pen needle, diabetic 32 gauge x 5/32 needle See Rx Instructions subcut QID Qty: 50 5RF Rx Instructions: As directed 2X/day naproxen 500 mg tablet 500 mg PO BID PRN (Reason: pain) Qty: 20 0RF Tresiba FlexTouch U-200 200 unit/mL (3 mL) insulin pen 35 unit subcut BID 30 Days Qty: 10.5 0RF metformin 500 mg tablet extended release 24hr 1,000 mg PO BID Qty: 120 1RF Ozempic 0.25 mg or 0.5 mg(2 mg/1.5 mL) pen injector 0.25 mg subcut QWEEK Qty: 1.5 2RF Rx Instructions: for 4 doses (DME) pen needle, diabetic 31 gauge x 3/16 needle See Rx Instructions subcut .MEDSUPPLY Qty: 50 Rx Instructions: As directed alcohol swabs Pads, Medicated topical QID (DME) blood-glucose meter [FreeStyle [place] Lite] Kit See Rx Instructions .Route Qty: 1 0RF Rx Instructions: As directed checks 4 X/day tizanidine 2 mg tablet 2 mg PO BID PRN (Reason: muscle spasticity) Qty: 60 3RF Interventions: ED Discharge Assessment Last Done: 12/06/22 15:19 Discharge Date/Time: 12/06/22 16:01
--- NOTE | 2022-12-06 15:05 | MHC.EDTECH ---
called pt for EKG and POC glucose. Pt did not answer.
== END 2022-12-06 16:01 | disposition left against medical advice (07) ==
PROVIDERS: Emergency Provider Emergency Medicine; PCP Internal Medicine
DX: E11.65 Type 2 diabetes mellitus with hyperglycemia (principal); R07.9 Chest pain, unspecified; I10 Essential (primary) hypertension; F11.20 Opioid dependence, uncomplicated; Z87.440 Personal history of urinary (tract) infections; Z79.84 Long term (current) use of oral hypoglycemic drugs
CPT/HCPCS: 99281; 99282

== ENCOUNTER 2023-02-16 18:56 | Emergency (ER) | payer OTHER, SELFPAY ==
--- NOTE | ~2023-02-16 | XR_ITS ---
EXAMINATION: XR WRIST, RIGHT XR HAND, RIGHT CLINICAL INFORMATION: Pain after a fall COMPARISON: None available. TECHNIQUE: PA, lateral, and oblique views of the right wrist and PA, lateral, and oblique views of the right hand FINDINGS: RIGHT WRIST: The bones and soft tissues are normal. No fracture. Alignment is anatomic. Joint spaces are maintained. No erosions or soft tissue calcifications. RIGHT HAND: No acute abnormality. No fracture or dislocation. Status post amputation of the distal phalanx of the middle and ring finger. XR/XR hand wrist RT IMPRESSION: Normal right hand and wrist.
--- NOTE | ~2023-02-16 | XR_ITS ---
EXAMINATION: XR SACRUM AND COCCYX CLINICAL INFORMATION: Sacral/coccygeal pain status post fall COMPARISON: None available. TECHNIQUE: 3 views of the sacrum and coccyx were obtained. FINDINGS: There are no fractures. No bone, joint or soft tissue abnormality is demonstrated. XR/XR sacrum coccyx min 2V IMPRESSION: Unremarkable examination.
[2023-02-16 20:25] VITALS: BP 116/86; PULSE 97; RESP 16; TEMP 37; O2SAT 98; BMI 22.6
--- NOTE | 2023-02-16 20:26 | ED_ITS ---
HPI - Fall General Chief Complaint: Fall <DONAVAN Mendoza - Last Filed: 02/16/23 20:27> Stated Complaint: fell, hand inj <DONAVAN Mendoza - Last Filed: 02/16/23 20:27> Time Seen by Provider: 02/16/23 21:36 <DONAVAN Mendoza - Last Filed: 02/16/23 20:27> Source: patient <Geri Wallace MD - Last Filed: 02/16/23 22:44> Mode of arrival: ambulatory <Geri Wallace MD - Last Filed: 02/16/23 22:44> Limitations: no limitations <Geri Wallace MD - Last Filed: 02/16/23 22:44> History of Present Illness HPI Narrative: RME - 42 y/o Nigerien speaking right hand dominant male presents to the ER for evaluation of right wrist and hand pain along with right buttock pain after he slipped and fell backward yesterday. He used his right hand to break his fall. Minimal swelling on exam, no gross deformity. <Geri Wallace MD - Last Filed: 02/16/23 22:44> Related Data Home Medications: Home Medications Medication Instructions Recorded Confirmed pen needle, diabetic 31 gauge x #50 ea 09/12/20 12/20/2212/23 alcohol swabs pad topical QID 10/15/20 12/20/22 Previous Rx's Medication Instructions Recorded blood sugar diagnostic (FreeStyle #100 ea 01/13/22 Test strips) blood-glucose meter (FreeStyle #1 ea 08/27/22 Ferris Lite kit) pen needle, diabetic 31 gauge x #50 ea 09/13/2202/22 (1st Tier Unifine Pentips) pen needle, diabetic 32 gauge x #50 ea 09/13/22 naproxen 500 mg tablet 500 mg PO BID PRN pain #20 tabs 12/06/22 metformin 500 mg tablet,extended 1,000 mg PO BID #120 tabs 12/07/22 release 24hr amoxicillin 500 mg tablet 500 mg PO BID 7 days #14 tabs 12/16/22 atorvastatin 20 mg tablet 20 mg PO BEDTIME 90 days #90 tabs 12/20/22 insulin degludec 200 unit/mL (3 40 unit (0.2 mL) subcut BID 30 12/20/22 mL) subcutaneous pen (Tresiba days #12 mL FlexTouch U-200 insulin) oxycodone 5 mg tablet 5 mg PO Q8H PRN pain #7 tabs 02/16/23 <DONAVAN Mendoza - Last Filed: 02/16/23 20:27> Allergies/Adverse Reactions: Allergies Allergy/AdvReac Type Severity Reaction Status Date / Time empagliflozin Allergy Intermediate Headache, Verified 12/20/22 17:12 weight loss escitalopram Allergy Intermediate ineffective Verified 12/20/22 17:12 hydroxyzine AdvReac Intermediate Anxiety Verified 12/20/22 17:12 lisinopril AdvReac Intermediate Headache Verified 12/20/22 17:12 <DONAVAN Mendoza - Last Filed: 02/16/23 20:27> Review of Systems Review of Systems: All other systems are reviewed and are negative Constitutional: Reports as per HPI and Reports no additional constitutional complaints Eyes: Reports as per HPI and Reports no additional eye complaints Reports system reviewed and no additional complaints, except as documented Cardiovascular: Reports as per HPI and Reports no additional cardiovascular complaints Respiratory: Reports as per HPI and Reports no additional respiratory complaints Gastrointestinal: Reports as per HPI and Reports no additional gastrointestinal complaints Genitourinary: Reports no additional female genitourinary complaints Musculoskeletal: Reports no additional musculoskeletal complaints Skin/Breast: Reports system reviewed and no additional complaints, except as docu Psychiatric: Reports no additional psychiatric complaints Endocrine: Reports no additional endocrine complaints Hematologic/Lymphatic: Reports no additional hematologic/lymphatic complaints Allergic/Immunologic: Reports no additional allergic/immunologic complaints Reports system reviewed and no additional complaints, except as documented and Reports Abnormal speech present <Geri Wallace MD - Last Filed: 02/16/23 22:44> [facility] Past Medical History Medical History: Medical History Chronic hand pain Diabetes mellitus Essential hypertension Mild recurrent major depression Opioid dependence Primary insomnia Recurrent UTI <DONAVAN Mendoza - Last Filed: 02/16/23 20:27> Surgical History: Surgical History History of surgery <DONAVAN Mendoza - Last Filed: 02/16/23 20:27> Family History Family History: Family History Father No problems noted. Mother No problems noted. Maternal Grandmother Stomach cancer Sister No problems noted. Sister No problems noted. Brother No problems noted. Brother No problems noted. Son No problems noted. Son No problems noted. Daughter No problems noted. Daughter No problems noted. <DONAVAN Mendoza - Last Filed: 02/16/23 20:27> Social History Social History: Social History Housing: Apartment Alcohol intake: never Patient Tobacco Use Status: Former Tobacco user Tobacco use type: Cigarette e-Cigarette/Vaping Use: Never Used Second Hand Smoke Exposure: No Advance Directives: No Advance Directives Information Provided: No Advance Directives Date on File: 09/15/20 service: No Current occupational status: unemployed Cognitive needs: No Hearing needs: No Vision needs: Yes <DONAVAN Mendoza - Last Filed: 02/16/23 20:27> Physical Exam 2 Vital Signs: Vital Signs: Last Vital Signs Temp 98.6 F 02/16/23 20:25 Pulse 97 02/16/23 20:25 Resp 16 02/16/23 20:25 BP 116/86 02/16/23 20:25 Pulse Ox 98 02/16/23 20:25 O2 Del Method Room Air 02/16/23 20:25 BMI result Body Mass Index 22.6 <DONAVAN Mendoza - Last Filed: 02/16/23 20:27> Vital Signs: Last Vital Signs Temp 98.6 F 02/16/23 20:25 Pulse 97 02/16/23 20:25 Resp 16 02/16/23 20:25 BP 116/86 02/16/23 20:25 Pulse Ox 98 02/16/23 20:25 O2 Del Method Room Air 02/16/23 20:25 BMI result Body Mass Index 22.6 Vital signs have been reviewed as appeared to be correct. Blood pressure normal. Heart rate normal. Respiration rate normal. Temperature normal. Oxygen saturation normal. <Geri Wallace MD - Last Filed: 02/16/23 22:44> Appearance: Alert. Oriented X3. No acute distress. Head: Normal external exam. Normocephalic. Atraumatic. No Francisco signs noted. No raccoon eyes noted Eyes: PERRLA. EOMI. Conjunctiva and sclera normal. Eyelids normal. ENT: TM's Normal. Pharynx normal. Uvula midline. Moist mucous membranes. No trismus noted. No drooling noted. No muffled voice noted. Neck: Normal inspection. Neck supple. FROM. No adenopathy. Thyroid Normal. No meningeal signs. No neck mass noted. CVS: Normal heart rate and rhythm. Heart sound normal. No murmurs noted. Pulses normal throughout. Respiratory: No respiratory distress. Painless inspiration. Breath sounds normal. No wheezes/rales/rhonchi noted. Chest nontender. No accessory muscle usage noted or decreased air movement noted. Abdomen: Soft and nontender. Bowel sounds normal in all 4 quadrants. No distention noted. No organomegaly noted. No visible injury noted. Back: No CVA tenderness. Full range of motion noted. Skin: Skin warm and dry. Normal skin color. Normal skin turgor. No rashes/lesions/lacerations noted. Extremities: Right hand exam: Neurovascular intact, a pressure tenderness over the base of the right thumb, no deformity, no step-off. Neuro: Oriented X 3. Cranial nerve exam: II-XII are grossly intact No motor deficit. No sensory deficit. Reflexes normal. <Geri Wallace MD - Last Filed: 02/16/23 22:44> Course Course Course Narrative: RME - 42 y/o Nigerien speaking right hand dominant male presents to the ER for evaluation of right wrist and hand pain along with right buttock pain after he slipped and fell backward yesterday. He used his right hand to break his fall. Minimal swelling on exam, no gross deformity. Plan: x-ray right wrist/hand, coccyx <DONAVAN Mendoza - Last Filed: 02/16/23 20:27> 42-year-old male status post mechanical fall complaining of right hand pain and back pain with negative x-rays for fractures, recommended NSAIDs and right hand immobilization with ortho follow-up. Patient is requesting narcotic in the emergency department which was not given because patient will drive himself home , prescribe 5 pills of oxycodone to his pharmacy. <Geri Wallace MD - Last Filed: 02/16/23 22:44> Medical Decision Making Differential Diagnosis Differential Diagnoses: The differential diagnosis associated with the presentation includes (Right hand fracture, right wrist fracture, sacral fracture, contusion.) <Geri Wallace MD - Last Filed: 02/16/23 22:44> Independent Interpretation I performed an independent interpretation of an: Plain X-Ray (Right hand/right wrist: Unremarkable. Sacrum and coccyx x- ray: Unremarkable.) <Geri Wallace MD - Last Filed: 02/16/23 22:44> Radiology Impression Discussion of test interpretation with radiology: I have reviewed the radiologist's reading. <Geri Wallace MD - Last Filed: 02/16/23 22:44> Discharge Plan Discharge Clinical Impression: Contusion of hand, right, Contusion of sacrum <DONAVAN Mendoza - Last Filed: 02/16/23 20:27> Patient Disposition: Home, Self-Care <DONAVAN Mendoza - Last Filed: 02/16/23 20:27> Instructions: Contusion in Adults (ED) <DONAVAN Mendoza - Last Filed: 02/16/23 20:27> Prescriptions: New oxycodone 5 mg tablet 5 mg PO Q8H PRN (Reason: pain) Qty: 7 0RF Rx Instructions: Partial Fill upon patient request. No Action (DME) FreeStyle Test Strip See Rx Instructions .ROUTE .MEDSUPPLY Qty: 100 11RF Rx Instructions: Use 1 test strip twice a day (DME) pen needle, diabetic [1st Tier Unifine Pentips] 31 gauge x 5/16 needle See Rx Instructions .ROUTE .MEDSUPPLY Qty: 50 3RF Rx Instructions: Use pen needle once a day (DME) pen needle, diabetic 32 gauge x 5/32 needle See Rx Instructions subcut QID Qty: 50 5RF Rx Instructions: As directed 2X/day naproxen 500 mg tablet 500 mg PO BID PRN (Reason: pain) Qty: 20 0RF metformin 500 mg tablet extended release 24hr 1,000 mg PO BID Qty: 120 1RF amoxicillin 500 mg tablet 500 mg PO BID 7 Days Qty: 14 0RF Tresiba FlexTouch U-200 200 unit/mL (3 mL) insulin pen 40 unit subcut BID 30 Days Qty: 12 1RF atorvastatin 20 mg tablet 20 mg PO BEDTIME 90 Days Qty: 90 0RF (DME) pen needle, diabetic 31 gauge x 3/16 needle See Rx Instructions subcut .MEDSUPPLY Qty: 50 Rx Instructions: As directed alcohol swabs Pads, Medicated topical QID (DME) blood-glucose meter [FreeStyle Ferris Lite] Kit See Rx Instructions .Route Qty: 1 0RF Rx Instructions: As directed checks 4 X/day <DONAVAN Mendoza - Last Filed: 02/16/23 20:27> Referrals: Angeles Ryan MD [Physician] - <DONAVAN Mendoza - Last Filed: 02/16/23 20:27> Interventions: ED Discharge Assessment Last Done: 02/16/23 22:27 LWBS Worksheet Last Done: 02/16/23 20:18 <DONAVAN Mendoza - Last Filed: 02/16/23 20:27> Discharge Date/Time: 02/16/23 22:27 <DONAVAN Mendoza - Last Filed: 02/16/23 20:27>
== END 2023-02-16 22:27 | disposition home or self-care (01) ==
PROVIDERS: Emergency Provider Emergency Medicine; PCP Internal Medicine
DX: S60.221A Contusion of right hand, initial encounter (principal); S30.0XXA Contusion of lower back and pelvis, initial encounter; W17.89XA Other fall from one level to another, initial encounter; E11.9 Type 2 diabetes mellitus without complications; I10 Essential (primary) hypertension; E78.5 Hyperlipidemia, unspecified; F11.20 Opioid dependence, uncomplicated; Z79.84 Long term (current) use of oral hypoglycemic drugs; Z79.02 Long term (current) use of antithrombotics/antiplatelets; Z79.899 Other long term (current) drug therapy; Y93.9 Activity, unspecified; Y92.9 Unspecified place or not applicable; Y99.9 Unspecified external cause status
CPT/HCPCS: 72220; 73110; 73130; 99283

== ENCOUNTER 2023-03-04 14:33 | Outpatient (REF) | payer OTHER, SELFPAY ==
--- NOTE | ~2023-03-04 | XR_ITS ---
EXAMINATION: XR ELBOW, RIGHT XR WRIST, RIGHT CLINICAL INFORMATION: Pain in the right elbow. Pain in the right hand. COMPARISON: Right hand and wrist x-rays of 02/16/2023, right hand x-ray of 03/12/2021. TECHNIQUE: 3 views of the right elbow; AP, lateral, and oblique views of the right elbow. 4 views of the right wrist; PA, lateral, oblique and ulnar division views. FINDINGS: RIGHT ELBOW: Osseous mineralization is normal. No evidence of fracture or dislocation. No soft tissue calcifications. No joint effusion. Essentially, no significant abnormality of the bones, joint or soft tissues is demonstrated. RIGHT WRIST: Normal osseous mineralization. No focal erosion is seen. No soft tissue calcifications. Note is again made of hypertrophic osseous changes around the sesamoids of the thumb at the MCP joint on the ulnar aspect; stable in appearance compared to previous x-ray of 2020. Otherwise, no significant abnormality of the bones, joints or soft tissues is demonstrated. XR/XR wrist RT w scaphoid IMPRESSION: 1. Unremarkable right elbow radiographs. 2. Stable right wrist radiographs without acute osseous abnormality. Chronic hypertrophic osseous changes around the sesamoids of the right thumb MCP joint.
--- NOTE | ~2023-03-04 | XR_ITS ---
EXAMINATION: XR ELBOW, RIGHT XR WRIST, RIGHT CLINICAL INFORMATION: Pain in the right elbow. Pain in the right hand. COMPARISON: Right hand and wrist x-rays of 02/16/2023, right hand x-ray of 03/12/2021. TECHNIQUE: 3 views of the right elbow; AP, lateral, and oblique views of the right elbow. 4 views of the right wrist; PA, lateral, oblique and ulnar division views. FINDINGS: RIGHT ELBOW: Osseous mineralization is normal. No evidence of fracture or dislocation. No soft tissue calcifications. No joint effusion. Essentially, no significant abnormality of the bones, joint or soft tissues is demonstrated. RIGHT WRIST: Normal osseous mineralization. No focal erosion is seen. No soft tissue calcifications. Note is again made of hypertrophic osseous changes around the sesamoids of the thumb at the MCP joint on the ulnar aspect; stable in appearance compared to previous x-ray of 2020. Otherwise, no significant abnormality of the bones, joints or soft tissues is demonstrated. XR/XR elbow RT min 3V IMPRESSION: 1. Unremarkable right elbow radiographs. 2. Stable right wrist radiographs without acute osseous abnormality. Chronic hypertrophic osseous changes around the sesamoids of the right thumb MCP joint.
== END 2023-03-04 14:34 | disposition home or self-care (01) ==
LOC: HO.HOSX 14:33
PROVIDERS: PCP Internal Medicine; Visit Provider Physician Assistant
DX: S52.121A Displaced fracture of head of right radius, initial encounter for closed fracture (principal); M79.644 Pain in right finger(s); M79.641 Pain in right hand
CPT/HCPCS: 73080; 73110; 99202

== ENCOUNTER 2023-03-25 07:42 | Outpatient (REF) | payer OTHER, SELFPAY ==
--- NOTE | ~2023-03-25 | XR_ITS ---
EXAMINATION: XR ELBOW, RIGHT CLINICAL INFORMATION: Pain COMPARISON: Previous x-ray February 2023 TECHNIQUE: AP, lateral, and oblique views of the right elbow. FINDINGS: Bone alignment is normal. Joint spaces are normal. No joint effusion. Question soft tissue swelling of the posterior elbow. Question small osteophyte versus a well-corticated soft tissue ossification, possibly old avulsion fracture, at the posterior ulna near the triceps tendon insertion. No definite acute fracture. No dislocation. XR/XR wrist RT w scaphoid IMPRESSION: Question posterior elbow soft tissue swelling and osteophyte versus old avulsion fracture of the posterior proximal ulna. EXAMINATION: Right wrist x-ray CLINICAL INFORMATION: Pain COMPARISON: Previous x-ray February 2023 TECHNIQUE: 4 views of the right wrist FINDINGS: Bone alignment is normal. No fracture or dislocation. Normal joints a cyst. Degenerative changes of the sesamoid bones adjacent to the first metacarpal head. Soft tissues are unremarkable. IMPRESSION: No fracture or dislocation. Degenerative changes of the sesamoid bones adjacent to the first metacarpal head similar to previous exam.
--- NOTE | ~2023-03-25 | XR_ITS ---
EXAMINATION: XR ELBOW, RIGHT CLINICAL INFORMATION: Pain COMPARISON: Previous x-ray February 2023 TECHNIQUE: AP, lateral, and oblique views of the right elbow. FINDINGS: Bone alignment is normal. Joint spaces are normal. No joint effusion. Question soft tissue swelling of the posterior elbow. Question small osteophyte versus a well-corticated soft tissue ossification, possibly old avulsion fracture, at the posterior ulna near the triceps tendon insertion. No definite acute fracture. No dislocation. XR/XR elbow RT min 3V IMPRESSION: Question posterior elbow soft tissue swelling and osteophyte versus old avulsion fracture of the posterior proximal ulna. EXAMINATION: Right wrist x-ray CLINICAL INFORMATION: Pain COMPARISON: Previous x-ray February 2023 TECHNIQUE: 4 views of the right wrist FINDINGS: Bone alignment is normal. No fracture or dislocation. Normal joints a cyst. Degenerative changes of the sesamoid bones adjacent to the first metacarpal head. Soft tissues are unremarkable. IMPRESSION: No fracture or dislocation. Degenerative changes of the sesamoid bones adjacent to the first metacarpal head similar to previous exam.
== END 2023-03-25 07:43 | disposition home or self-care (01) ==
LOC: HO.HOSX 07:42
PROVIDERS: Visit Provider Physician Assistant
DX: S52.121D Displaced fracture of head of right radius, subsequent encounter for closed fracture with routine healing (principal); M79.644 Pain in right finger(s)
CPT/HCPCS: 73080; 73110; 99212

== ENCOUNTER 2023-04-07 15:02 | Outpatient (REF) | payer OTHER, SELFPAY ==
--- NOTE | 2023-04-07 15:13 | EMG_ITS ---
Please see scanned EMG / Nerve Conduction Report. MTDD
== END 2023-04-07 15:03 | disposition home or self-care (01) ==
LOC: HO.NEURO 15:02
PROVIDERS: PCP Internal Medicine; Visit Provider Physician Assistant
DX: R20.0 Anesthesia of skin (principal); R20.2 Paresthesia of skin
CPT/HCPCS: 95885; 95910

== ENCOUNTER 2023-04-20 08:49 | Outpatient (AMB) | payer OTHER, SELFPAY ==
--- NOTE | 2023-04-20 09:10 | MHC.OFFVIS ---
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 States he put his hands out to break his fall. ?Patient is here to review EMG. 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 He is also S/P fall on 02/15/23 while at work. He has been following with DONAVAN Wells for this. He was confused today what his appointment was for, just that he came because he had an appointment. When asked about numbness and tingling he did complain about numbness and tingling in all of his fingers of his right hand. He has a Hx of right middle & ring finger DIP joint level amputations after an accident at work, which occurred in ~2018. He is a Diabetic which he says is uncontrolled. His last HgA1c from 08/27/22 was 13.9%. He is supposed to see his PCP later today to discuss this. [facility] Medical History Chronic hand pain Diabetes mellitus Essential hypertension Mild recurrent major depression Opioid dependence Primary insomnia Recurrent UTI Surgical History History of surgery Family History Father No problems noted. Mother No problems noted. Maternal Grandmother Stomach cancer Sister No problems noted. Sister No problems noted. Brother No problems noted. Brother No problems noted. Son No problems noted. Son No problems noted. Daughter No problems noted. Daughter No problems noted. 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 Cognitive needs: No Hearing needs: No Vision needs: Yes Review of Systems Const All systems reviewed & are unremarkable except as noted in HPI and below Physical Exam Vital Signs: BMI result Body Mass Index 22.6 Const General: cooperative, healthy appearing and no acute distress Orientation/consciousness: patient oriented x3 HEENT Head: Yes normocephalic and Yes atraumatic Eyes EOM: EOMs intact bilaterally Resp Effort & Inspection: normal respiratory effort and able to speak in complete sentences Cardio Jugular venous distension: no JVD Skin General skin exam: turgor normal Rashes: no rashes Neuro General: patient oriented x3 Extrem Other: Evaluation of Right Upper Extremity: The patient is alert, oriented, and in no acute distress Neuro: Dense numbness to the tips of all digits Thenar & intrinsic wasting Slight APB muscle belly firing Vascular: Cap refill brisk ROM: He can make a fist and extend all his digits He did not have good active flexion of the middle finger, but passively could bring this closed to a fist No locking or catching He has had partial amputations of the right middle & ring fingers, from a work injury in ~2018 Skin: No lacerations or abrasions. General: No Ecchymosis. No Erythema or evidence of infection. Nerve Conduction Study: Impression: Moderately severe cubital tunnel syndrome on the right Denervative changes in the ulnar innervated intrinsic hand muscles Dr. Blackman 04/07/23 Radiographs: 3 views of the right hand, wrist, and elbow from 03/25/23 were reviewed by me today in clinic. They show no fractures or dislocations. Psych Appearance: grossly normal Affect: normal affect Attitude: cooperative Assessment & Plan Assessment & Plan (1) Cubital tunnel syndrome on right: Code(s): G56.21 - Lesion of ulnar nerve, right upper limb (2) Carpal tunnel syndrome of right wrist: Code(s): G56.01 - Carpal tunnel syndrome, right upper limb (3) Uncontrolled diabetes mellitus with hyperglycemia: Code(s): E11.65 - Type 2 diabetes mellitus with hyperglycemia Plan Assessment & Plan: 1. Right cubital tunnel syndrome, moderate-severe With dense numbness & intrinsic wasting 2. Right Carpal tunnel syndrome, based on history and PE With dense numbness & thenar wasting Not found on NCS from 04/07/23 I educated him about these conditions I discussed treatment options The patient would like to proceed with surgery The risks and benefits of operative treatment were discussed with the patient and the patient wishes to proceed with surgery. These risks include, but are not limited to risk of damage to blood vessels, nerves, tendons, infection, recurrence, incomplete relief of preoperative symptoms, persistent pain, possible need for further surgery and the risks associated with regional blocks and anesthesia. The plan is to take the patient to the operating room sometime in the next few weeks for the following procedures: 1. Right Cubital tunnel release vs ulnar transposition, under general 2. Right carpal tunnel release, under general All of the preoperative paperwork including the consent was filled out today. All the patient's questions were answered. The patient understands that they will be contacted by our chemist enzymes soon to schedule this procedure He denies blood thinners, asthma, heart, lung, kidney issues He is a Diabetic, his most recent HgA1c was 13.9% on 08/27/22. He needs an updates HgA1c that is <8.0% in order to proceed with surgery I counseled him about the importance of getting his diabetes under better control. Scribed for Angeles Ryan MD by Alexey Suarez, medical technician assistant, on 04/20/23 at 9:55 AM, EST. Coding Level of Care Code Est Pt Level 4 (22958) Diagnoses Cubital tunnel syndrome on right G56.21 Carpal tunnel syndrome of right wrist G56.01 Uncontrolled diabetes mellitus with hyperglycemia E11.65
[2023-04-20 09:16] VITALS: BMI 22.6
== END 2023-04-20 09:58 | disposition home or self-care (01) ==
PROVIDERS: PCP Internal Medicine; Visit Provider Orthopaedic Surgery
DX: G56.21 Lesion of ulnar nerve, right upper limb (principal); G56.01 Carpal tunnel syndrome, right upper limb
CPT/HCPCS: 99214

== ENCOUNTER → 2023-04-20 08:49 | Outpatient (BNVA) | payer OTHER, SELFPAY | PROVIDERS: PCP Internal Medicine; Visit Provider Orthopaedic Surgery | DX: G56.21 Lesion of ulnar nerve, right upper limb (principal); G56.01 Carpal tunnel syndrome, right upper limb; E11.65 Type 2 diabetes mellitus with hyperglycemia; Z89.021 Acquired absence of right finger(s) | CPT/HCPCS: 99212 ==

== ENCOUNTER 2023-04-20 14:56 | Outpatient (AMB) | payer OTHER, SELFPAY ==
[2023-04-20 15:09] VITALS: BP 110/70; BMI 20.7
--- NOTE | 2023-04-20 15:09 | A.OFFPC_ITS ---
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 Required: No Accompanied by: Self / Same As Patient Allergies empagliflozin Allergy (Intermediate, Verified 04/20/23 15:22) Headache, weight loss escitalopram Allergy (Intermediate, Verified 04/20/23 15:22) ineffective hydroxyzine Adverse Reaction (Intermediate, Verified 04/20/23 15:22) Anxiety lisinopril Adverse Reaction (Intermediate, Verified 04/20/23 15:22) Headache Medication List - Last Reconciled 04/20/23 by Charlene Whaley MD alcohol swabs pad topical QID atorvastatin 20 mg PO BEDTIME 90 days blood sugar diagnostic (FreeStyle Test strips) Use 1 test strip twice a day blood-glucose meter (FreeStyle [place] Lite kit) As directed checks 4 X/day ibuprofen 800 mg PO Q8H PRN 30 days insulin degludec (Tresiba FlexTouch U-200 insulin) 40 units (0.2 mL) subcut BID 30 days metformin ER 1,000 mg (2 x 500 mg) PO BID pen needle, diabetic As directed pen needle, diabetic As directed 2X/day pen needle, diabetic (1st Tier Unifine Pentips) Use pen needle once a day Tobacco use date assessed: 12/20/22 Dental Screening Dental Screen Date: 04/20/23 Did you have a dental visit in the last 12 months?: No Did you have a dental problem in the last 6 months where you did not have access to dental care?: No Was dental information given to patient?: Patient has dentist HPI HPI Comments History of Present Illness Details This is a 42-year-old male with diabetes mellitus type 2 that comes for his physical exam. A1c elevated and he declines referral to Endocrinology. I increase insulin and add short-acting insulin. I will also start him on Trulicity. Last diabetic eye exam was about 2 years ago and I will refer him to ophthalmology. Complains of polyuria and polydipsia. No chest pain or shortness of breath. He does have mild major depression and was referred to counseling. [facility] Medical History (Updated 04/20/23 @ 16:55 by Charlene Whaley MD) Chronic hand pain Diabetes mellitus Essential hypertension Mild recurrent major depression Opioid dependence Primary insomnia Recurrent UTI Surgical History History of surgery Family History Father No problems noted. Mother No problems noted. Maternal Grandmother Stomach cancer Sister No problems noted. Sister No problems noted. Brother No problems noted. Brother No problems noted. Son No problems noted. Son No problems noted. Daughter No problems noted. Daughter No problems noted. 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 Eddie Hightower, Cindy Sloan, Torsten Johnston and colleagues, with an educational ling from [email or web address]. Review of Systems Const All systems reviewed & are unremarkable except as noted in HPI and below Eyes Reports no additional complaints, Denies change in vision and Denies other visual disturbances Card Denies chest pain at rest, Denies chest pain with activity, Denies edema, Denies irregular heart rhythm, Denies claudication, Denies dyspnea, Denies dyspnea on exertion, Denies orthopnea, Denies paroxysmal nocturnal dyspnea and Denies slow heart rate Resp Denies cough, Denies dyspnea and Denies dyspnea on exertion GI Denies abdominal pain, Denies change in bowel habits, Denies excessive flatus, Denies nausea and Denies vomiting Denies urinary hesitancy, Denies urinary incontinence and Denies urinary urgency Musc Denies abnormal gait, Denies atrophy, Denies deformity and Denies limited range of motion Skin/Breast Denies bleeding lesions, Denies changing lesions and Denies rash Neuro Denies abnormal gait and Denies lack of coordination Physical exam (Primary Care) Vital Signs: Last Vital Signs BP 110/70 04/20/23 15:09 BMI result Body Mass Index 20.7 Tobacco/Smoking Status: Tobacco use Status Tobacco use date assessed 12/20/22 04/20/23 15:13 Patient Tobacco Use Status Current everyday Tobacco 04/20/23 15:13 Tobacco use type Cigarette 04/20/23 15:13 e-Cigarette/Vaping Use Never Used 04/20/23 15:13 Thrive Assessment: Date of Thrive Assessment Date Thrive assessed 12/20/22 04/20/23 15:13 Const Orientation/consciousness: patient oriented x3 HENMT Head: Yes normal to inspection, Yes normocephalic and Yes atraumatic Ears: external ears normal Eyes General: appearance normal, both eyes and all related structures Eyelids: Yes eyelids normal Conjunctivae: conjunctivae normal Neck Neck: Yes normal visual inspection and Yes supple Resp Effort & Inspection: normal respiratory effort Auscultation: clear to auscultation bilaterally Cardio Jugular venous distension: no JVD Rate: regular rate Rhythm: regular rhythm Heart sounds: S1 normal heart sound present and S2 normal heart sound present GI Inspection: Yes normal to inspection Palpation (GI): Soft to palpation and nontender Auscultation: normal bowel sounds Skin General skin exam: no rashes or lesions noted Neuro General: patient oriented x3 and no focal motor deficits Extrem General: Yes full ROM Psych Appearance: grossly normal Results AMB Hemoglobin A1c AMB Hemoglobin A1c 10.4 % Last Edit by MYRTLE Padron on 04/20/23 15: 16 Results Reviewed Results Reviewed: Laboratory Last Values Hgb A1c (Clinic) 10.4 % (4.0-6.0) H 04/20/23 15:13 Assessment and Plan Assessment & Plan (1) Physical exam: Code(s): Z00.00 - Encounter for general adult medical examination without abnormal findings Plan: Repeat in a year (2) Mild recurrent major depression: Code(s): F33.0 - Major depressive disorder, recurrent, mild Plan: Referred to counseling. (3) Uncontrolled diabetes mellitus with hyperglycemia: Code(s): E11.65 - Type 2 diabetes mellitus with hyperglycemia Plan: Continue metformin. Increase insulin from 40 units to 45 units. Start short-acting insulin. Start Trulicity. A1c goal is equal or less than 7%. Orders: Orders Comprehensive [place]. Panel Fast Today E11.65 - Type 2 diabetes mellitus with hyperglycemia Lipid Panel Today E78.5 - Hyperlipidemia, unspecified Microalbumin, Random (w Creat) Today E11.9 - Type 2 diabetes mellitus without complications XR knee RT 2V Today M25.561 - Pain in right knee AMB Hemoglobin A1c Today E11.9 - Type 2 diabetes mellitus without complications Referrals Counseling Referral F33.0 - Major depressive disorder, recurrent, mild Ophthalmology Referral E11.9 - Type 2 diabetes mellitus without complications Medications: New dulaglutide (Trulicity) 0.75 mg (0.5 mL) subcut QWEEK 90 days 6.5 mL 3RF E11.9 - Type 2 diabetes mellitus without complications insulin aspart U-100 (Novolog FlexPen U-100 Insulin aspart) 10 units (0.1 mL) subcut TID 90 days 27 mL 1RF E11.65 - Type 2 diabetes mellitus with hyperglycemia venlafaxine ER 37.5 mg PO BEDTIME 90 days 90 caps 1RF F33.0 - Major depressive disorder, recurrent, mild Changed From insulin degludec (Tresiba FlexTouch U-200 insulin) 40 units (0.2 mL) subcut BID 30 days 12 mL 1RF E11.9 - Type 2 diabetes mellitus without complications To insulin degludec (Tresiba FlexTouch U-200 insulin) 45 units (0.225 mL) subcut BID 30 days 13.5 mL 1RF E11.9 - Type 2 diabetes mellitus without complications From pen needle, diabetic (1st Tier Unifine Pentips) Use pen needle once a day 50 ea 3RF E11.65 - Type 2 diabetes mellitus with hyperglycemia To pen needle, diabetic (1st Tier Unifine Pentips) Use pen needle four times a day 100 ea 6RF E11.65 - Type 2 diabetes mellitus with hyperglycemia Coding Level of Care Code Est Pt Prev Care 40-64y(63990) Diagnoses Physical exam Z00.00 Mild recurrent major depression F33.0 Uncontrolled diabetes mellitus with hyperglycemia E11.65 Time Spent (min) 24
== END 2023-04-20 15:46 | disposition home or self-care (01) ==
PROVIDERS: PCP Internal Medicine; Visit Provider Internal Medicine
DX: Z00.00 Encounter for general adult medical examination without abnormal findings (principal); F33.0 Major depressive disorder, recurrent, mild; E11.65 Type 2 diabetes mellitus with hyperglycemia; E11.9 Type 2 diabetes mellitus without complications
CPT/HCPCS: 83036; 99396

== ENCOUNTER 2023-07-30 22:50 | Emergency (ER) | payer OTHER, SELFPAY ==
--- NOTE | ~2023-07-30 | XR_ITS ---
EXAMINATION: XR HAND, RIGHT CLINICAL INFORMATION: Swelling right pointer finger, evaluate for foreign body. COMPARISON: Radiograph right wrist 03/25/2023. Radiograph right hand and wrist 02/16/2023. TECHNIQUE: PA, lateral, and oblique views of the right hand. 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 Again noted chronic deformities of the sesamoid bones in the first digit. Stable punctate calcific/ossific bodies adjacent to the tuft of the second distal phalanx. No acute fractures or subluxation. Mild soft tissue swelling in the second digit. No unexpected radiopaque foreign bodies. XR/XR hand RT min 3V IMPRESSION: 1. No acute fractures or subluxation. 2. Mild soft tissue swelling in the second digit. 3. No unexpected radiopaque foreign bodies.
[2023-07-30 23:12] VITALS: BP 136/67; PULSE 88; RESP 18; TEMP 36.9; O2SAT 98; BMI 20.1
[2023-07-31 06:40] VITALS: BP 129/78; PULSE 80; RESP 18; O2SAT 98
--- NOTE | 2023-07-31 06:46 | MHC.EDTECH ---
Patient informed this tech as she went to take his vitals that he is a diabetic and hasn't checked his sugar since getting checked in. Once i finished his vitals, I got the glucose machine and checked his sugar. It's elevated at 166. Reported to projection technician Franco.
[2023-07-31 06:48] LABS: Glucose, Whole Blood 166 mg/dL (60-115)
--- NOTE | 2023-07-31 08:07 | ED_ITS ---
HPI - Extremity Problem General Chief complaint: Extremity Injury, Upper Stated complaint: Swelling in finger left hand Time Seen by Provider: 07/31/23 07:24 Source: patient and old records reviewed Mode of arrival: ambulatory Limitations: no limitations History of Present Illness HPI Narrative: 43 yo male with PMH of HLD, DM, anxiety, depression, HTN, UTI, R hand dominance here with c/o R finger swelling and pain after trying to dig out wood from plywood two days ago - no fevers, n/v/d. He can bend the finger but it is painful. He thinks he got all of the wood out. MD Complaint: extremity pain and extremity swelling Onset (ago): day(s) (2) Pain Consistency: constant Location: right and other (index finger) Quality: aching Radiation: none Relieving factors: nothing Exacerbating factors: range of motion and palpation Associated symptoms: denies other symptoms Context: other (splinter) Related Data Home Medications Medication Instructions Recorded Confirmed alcohol swabs pad topical QID 10/15/20 04/20/23 Previous Rx's Medication Instructions Recorded blood sugar diagnostic (FreeStyle #100 ea 01/13/22 Test strips) blood-glucose meter (LiveHotSpotStyle #1 ea 08/27/22 [place] Lite kit) atorvastatin 20 mg tablet 20 mg PO BEDTIME 90 days #90 tabs 03/18/23 insulin aspart U-100 100 unit/mL 10 unit (0.1 mL) subcut TID 90 04/20/23 (3 mL) subcutaneous pen (Novolog days #27 mL FlexPen U-100 Insulin aspart) insulin degludec 200 unit/mL (3 50 unit (0.25 mL) subcut BID 30 05/10/23 mL) subcutaneous pen (Tresiba days #15 mL FlexTouch U-200 insulin) ibuprofen 800 mg tablet 800 mg PO Q8H PRN pain 30 days #90 06/20/23 tabs lancets 28 gauge (FreeStyle #100 ea 06/20/23 Lancets) metformin 500 mg tablet,extended 1,000 mg (2 x 500 mg) PO BID #120 07/11/23 release 24hr tabs metformin 1,000 mg tablet 1,000 mg PO BID 90 days #180 tabs 07/13/23 pen needle, diabetic 32 gauge x #100 ea 10/04/23 5/32 zolpidem 5 mg tablet 5 mg PO BEDTIME PRN sleep 30 days 07/21/23 #30 tabs cephalexin 500 mg capsule 500 mg PO QID 7 days #28 caps 07/31/23 doxycycline hyclate 100 mg capsule 100 mg PO BID 7 days #14 caps 07/31/23 Allergies Allergy/AdvReac Type Severity Reaction Status Date / Time empagliflozin Allergy Intermediate Headache, Verified 07/30/23 23:15 weight loss escitalopram Allergy Intermediate ineffective Verified 07/30/23 23:15 hydroxyzine AdvReac Intermediate Anxiety Verified 07/30/23 23:15 lisinopril AdvReac Intermediate Headache Verified 07/30/23 23:15 Review of Systems 2 Review of Systems: Constitutional : No Fever, No Chills ENT/Mouth : No sore throat, No Rhinorrhea Eyes: No Eye Pain, No Swelling, No Redness Cardiovascular : No Chest Pain, No SOB Respiratory : No Cough, No Sputum Gastrointestinal : No Nausea, No Vomiting, No Diarrhea, No abdominal Pain Genitourinary : No Dysuria, No Hematuria Musculoskeletal : pos joint pain, No Myalgias, pos Joint Swelling Skin : No Skin Lesions, positive skin rash Neuro : No Weakness, No Numbness, No Headache Psych : No Anxiety, No Depression All other systems reviewed and are negative [facility] Past Medical History Attestation statement: The following information was validated with the patient. Source: old records reviewed Medical History Primary insomnia Mild recurrent major depression Chronic hand pain Opioid dependence Essential hypertension Recurrent UTI Diabetes mellitus Surgical History History of surgery Family History Family History Father No problems noted. Mother No problems noted. Maternal Grandmother Stomach cancer Sister No problems noted. Sister No problems noted. Brother No problems noted. Brother No problems noted. Son No problems noted. Son No problems noted. Daughter No problems noted. Daughter No problems noted. 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 Oriented X3. No acute distress. Eyes: Pupils equal, round and reactive to light. ENT: Pharynx normal. Neck: Normal inspection. Neck supple. CVS: Normal heart rate and rhythm. Pulses normal. Respiratory: No respiratory distress. Breath sounds normal. Abdomen: Soft and nontender. Skin: Skin warm and dry. Normal skin color. Normal skin turgor. Extremities: No lower extremity edema. R index finger ttp along proximal phalanx with mild erythema and warmth there is a puncture wound on volar surface just near the PIP joint no FB felt no fluctuance no ttp along the prox tendon sheath, he can range the finger. distal NV intact. swelling just along prox phalanx and part of PIP joint does not extend beyond to distal finger or to hand. Neuro: Oriented X 3. No motor deficit. No sensory deficit. Medications Administered Discontinued Medications Generic Name Dose Route Start Last Admin Trade Name Freq PRN Reason Stop Dose Admin Piperacillin Sod/Tazobactam 50 mls @ 100 mls/hr 07/31/23 07:33 07/31/23 08:27 Sod 3.375 gm/ Sodium Chloride IV 07/31/23 08:02 100 mls/hr ONCE ONE Administration Medical Decision Making Medical Decision Making MDM Narrative: 43 yo male with PMH of HLD, DM, anxiety, depression, HTN, UTI, R hand dominance now with R index finger swelling and redness s/p splinter at this sabas Differential Diagnosis Differential Diagnoses: The differential diagnosis associated with the presentation includes FB, abscess, cellulitis can range finger doubt flexor tendon synovitis Admission/Observation Consideration of admission/observation: Escalation of care including admission/observation considered labs reassuring, VS stable, no signs of deeper infection will trial oral antibiotics. Lab Data MDM Lab Attestation statement: I reviewed the patient's lab results. 07/31/23 08:05 07/31/23 08:05 Labs: Lab Results 07/31/23 07/31/23 Range/Units 06:44 08:05 WBC 10.9 H (4.8-10.8) X10*3/uL RBC 5.15 (4.60-5.80) X10*6/uL Hgb 15.7 (14.0-18.0) g/dl Hct 46.9 (42.0-52.0) % MCV 91.1 (80.0-98.0) fL MCH 30.5 (27.0-33.0) pg MCHC 33.5 (31.0-36.0) g/dl RDW 11.9 (11.0-16.0) % Plt Count 216 (160-400) X10*3/uL MPV 10.2 (9.4-12.4) fL Immature Gran % (Auto) 0.6 H (0.0-0.4) % Neut % (Auto) 75.1 H (45-73) % Lymph % (Auto) 16.1 L (20-40) % Beckham % (Auto) 6.4 (2-11) % Eos % (Auto) 1.3 (0-4) % Baso % (Auto) 0.5 (0-2) % Lymph # (Auto) 1.8 (1.2-4.9) X10*3/uL Beckham # (Auto) 0.7 (0.1-1.2) X10*3/uL Eos # (Auto) 0.1 (0.0-0.4) X10*3/uL Baso # (Auto) 0.1 (0.0-0.2) X10*3/uL Abs Immat Gran (auto) 0.06 H (0.00-0.03) X10*3/uL Absolute Neuts (auto) 8.2 (2.0-8.3) x10*3/uL Absolute Nucleated RBC 0.000 (0.0-0.012) X10*3/uL Nucleated RBC % (auto) 0.0 (0.0-0.2) /100WBC Sodium 145 (135-145) mmol/L Potassium 4.1 (3.3-5.1) mmol/L Chloride 108 (96-108) mmol/L Carbon Dioxide 26 (22-29) mmol/L Anion Gap 15 (12-20) BUN 15 (9-16) mg/dL Creatinine 0.78 (0.5-1.4) mg/dL Estim Creat Clear Calc 108.5 Estimated GFR > 60 POC Glucose 166 H (60-115) mg/dL Random Glucose 132 H (60-115) mg/dL Lactic Acid 0.8 (0.5-2.0) mmol/L Calcium 9.4 (8.4-10.2) mg/dL Independent Interpretation I performed an independent interpretation of an: Plain X-Ray (no FB) Radiology Impression Discussion of test interpretation with radiology: I have reviewed the radiologist's reading. External Record Review External record reviewed: Inpatient record Prescription Management I considered prescription management with: Antibiotic Chronic Conditions Patient?s care impacted by: Diabetes Discharge Plan Discharge Clinical Impression: Cellulitis of finger Qualifiers: Laterality: right Qualified Code(s): L03.011 - Cellulitis of right finger Patient Disposition: Home, Self-Care Instructions: Cellulitis (ED) Additional Instructions: return for fevers, worsening swelling, inability to move fingers, redness or swelling that goes onto the palm of the hand. do not pick at the hand itself please. call and follow up with the orthopedics doctor given to you please call for appointment tomorrow for wound care check. take all antibiotics. On a cephalosporin?antibiotic, softer bowel movements are to be expected. Call your provider if you move your bowels more than 4 times a day, your bowel movements are almost all liquid, or you get a rash.?? On doxycycline, do not take pills immediately before going to bed and swallow pills with plenty of water. Avoid direct sunlight, iron, antacids, and Pepto Bismol. Call your provider if you develop new ringing in your ears, new problems hearing, dizziness, difficulty swallowing, rash, abdominal discomfort, nausea, or diarrhea.? Regrese por fiebre, empeoramiento de la hinchaz?n, incapacidad para credit relationship manager los dedos, enrojecimiento o hinchaz?n que llega a la zamora de la mano. No toques la mano, por favor. Llame y sandy un seguimiento con el m?dico ortop?dico que le asignaron. Llame para programar [place] karen ma?charlene para revisar el cuidado de la herida. amparo todos los antibi?ticos. Con un antibi?barb de cefalosporina, se esperan deposiciones m?s blandas. Llame a urbina proveedor si defeca m?s de 4 veces al d?a, si drew deposiciones son tracee todas l?quidas o si tiene sarpullido. En el cinda de doxiciclina, no tome las pastillas inmediatamente antes de acostarse y tr?guelas con abundante agua. Evite la wood solar directa, el renzo, los anti?cidos y el Pepto Bismol. Llame a urbina proveedor si presenta nuevos zumbidos en los o?dos, nuevos problemas de audici?n, mareos, dificultad para tragar, sarpullido, malestar abdominal, n?useas o diarrea. Prescriptions: New doxycycline hyclate 100 mg capsule 100 mg PO BID 7 Days Qty: 14 0RF cephalexin 500 mg capsule 500 mg PO QID 7 Days Qty: 28 0RF No Action (DME) FreeStyle Test Strip See Rx Instructions .ROUTE .MEDSUPPLY Qty: 100 11RF Rx Instructions: Use 1 test strip twice a day atorvastatin 20 mg tablet 20 mg PO BEDTIME 90 Days Qty: 90 0RF Tresiba FlexTouch U-200 200 unit/mL (3 mL) insulin pen 50 unit subcut BID 30 Days Qty: 15 1RF ibuprofen 800 mg tablet 800 mg PO Q8H PRN (Reason: pain) 30 Days Qty: 90 3RF (DME) lancets [FreeStyle Lancets] 28 gauge misc See Rx Instructions .Route Qty: 100 0RF Rx Instructions: As directed 4 times per day metformin 500 mg tablet extended release 24hr 1,000 mg PO BID Qty: 120 1RF metformin 1,000 mg tablet 1,000 mg PO BID 90 Days Qty: 180 1RF (DME) pen needle, diabetic 32 gauge x 5/32 needle See Rx Instructions subcut QID Qty: 100 12RF Rx Instructions: test 4 times per day zolpidem 5 mg tablet 5 mg PO BEDTIME PRN (Reason: sleep) 30 Days Qty: 30 0RF insulin aspart U-100 [Novolog FlexPen U-100 Insulin] 100 unit/mL (3 mL) insulin pen 10 unit subcut TID 90 Days Qty: 27 1RF alcohol swabs Pads, Medicated topical QID (DME) blood-glucose meter [FreeStyle [place] Lite] Kit See Rx Instructions .Route Qty: 1 0RF Rx Instructions: As directed checks 4 X/day Referrals: Kenyetta Navarro PA-C [Physician Applied Behavior Specialist] - 1 week (call to schedule appointment) Print Language: Luxembourgish
[2023-07-31 08:12] LABS: MANUAL DIFF FLAG NO
[2023-07-31 08:17] VITALS: BP 112/72; PULSE 69; RESP 16; O2SAT 100
[2023-07-31 08:22] LABS: Basophils Absolute Auto 0.1 X10*3/uL (0.0-0.2); Basophils Percent Auto 0.5 % (0-2); Eosinophils Absolute Auto 0.1 X10*3/uL (0.0-0.4); Eosinophils Percent Auto 1.3 % (0-4); Hematocrit 46.9 % (42.0-52.0); Hemoglobin 15.7 g/dl (14.0-18.0); Imm Gran Abs Auto 0.06 X10*3/uL (0.00-0.03); Imm Gran Pct Auto 0.6 % (0.0-0.4); Lymphocytes Absolute Auto 1.8 X10*3/uL (1.2-4.9); Lymphocytes Percent Auto 16.1 % (20-40); Mean Corpuscular HGB Conc 33.5 g/dl (31.0-36.0); Mean Corpuscular Hemoglobin 30.5 pg (27.0-33.0); Mean Corpuscular Volume 91.1 fL (80.0-98.0); Mean Platelet Volume 10.2 fL (9.4-12.4); Monocytes Absolute Auto 0.7 X10*3/uL (0.1-1.2); Monocytes Percent Auto 6.4 % (2-11); Neutrophils Absolute Auto 8.2 x10*3/uL (2.0-8.3); Neutrophils Percent Auto 75.1 % (45-73); Platelet Count 216 X10*3/uL (160-400); Red Blood Count 5.15 X10*6/uL (4.60-5.80); Red Cell Distribution Width 11.9 % (11.0-16.0); White Blood Count 10.9 X10*3/uL (4.8-10.8)
[2023-07-31 08:27] LABS: Lactic Acid 0.8 mmol/L (0.5-2.0)
[2023-07-31] MEDS: Piperacillin Sodium/Tazobactam 3.375 GM in 0.9 % Sodium Chloride 50 ML IV (08:27)
[2023-07-31 08:29] LABS: Anion Gap 15 (12-20); Blood Urea Nitrogen 15 mg/dL (9-16); Calcium 9.4 mg/dL (8.4-10.2); Carbon Dioxide 26 mmol/L (22-29); Chloride 108 mmol/L (96-108); Creatinine Clr Calc Pharmacy 108.5; Estimated Glomerular Filt Rate > 60; Glucose Random 132 mg/dL (60-115); Potassium 4.1 mmol/L (3.3-5.1); Sodium 145 mmol/L (135-145)
[2023-07-31 09:41] VITALS: BP 112/72; PULSE 71; RESP 18; TEMP 36.6; O2SAT 100
== END 2023-07-31 09:47 | disposition home or self-care (01) ==
PROVIDERS: Emergency Provider Emergency Medicine
DX: L03.011 Cellulitis of right finger (principal); Z79.899 Other long term (current) drug therapy; F17.210 Nicotine dependence, cigarettes, uncomplicated; Z71.6 Tobacco abuse counseling; M79.641 Pain in right hand
CPT/HCPCS: 36415; 73130; 80048; 82947; 83605; 85025; 87040; 96365; 99284; J2543

== ENCOUNTER 2023-08-31 13:37 | Emergency (ER) | payer OTHER, SELFPAY ==
--- NOTE | 2023-08-31 13:40 | ED_ITS ---
HPI - Wound/Laceration General Chief Complaint: Wound/Laceration Stated Complaint: Lac on R Side of Face Time Seen by Provider: 08/31/23 13:53 Source: patient Mode of arrival: ambulatory Limitations: no limitations History of Present Illness HPI narrative: 43 yold male with pmh of DM presents to the ED for right face lacerations caused by tool while fixing his car. patient denies any other trauma. patient unkown last tetanus shot. Patient states no other physical complinats. Related Data Home Medications Medication Instructions Recorded Confirmed alcohol swabs pad topical QID 10/15/20 04/20/23 Previous Rx's Medication Instructions Recorded blood sugar diagnostic (FreeStyle #100 ea 01/13/22 Test strips) blood-glucose meter (FreeStyle #1 ea 08/27/22 [place] Lite kit) atorvastatin 20 mg tablet 20 mg PO BEDTIME 90 days #90 tabs 03/18/23 insulin aspart U-100 100 unit/mL 10 unit (0.1 mL) subcut TID 90 04/20/23 (3 mL) subcutaneous pen (Novolog days #27 mL FlexPen U-100 Insulin aspart) insulin degludec 200 unit/mL (3 50 unit (0.25 mL) subcut BID 30 05/10/23 mL) subcutaneous pen (Tresiba days #15 mL FlexTouch U-200 insulin) ibuprofen 800 mg tablet 800 mg PO Q8H PRN pain 30 days #90 06/20/23 tabs lancets 28 gauge (FreeStyle #100 ea 06/20/23 Lancets) metformin 500 mg tablet,extended 1,000 mg (2 x 500 mg) PO BID #120 07/11/23 release 24hr tabs metformin 1,000 mg tablet 1,000 mg PO BID 90 days #180 tabs 07/13/23 pen needle, diabetic 32 gauge x #100 ea 07/13/2332 zolpidem 5 mg tablet 5 mg PO BEDTIME PRN sleep 30 days 07/21/23 #30 tabs cephalexin 500 mg capsule 500 mg PO QID 7 days #28 caps 07/31/23 doxycycline hyclate 100 mg capsule 100 mg PO BID 7 days #14 caps 07/31/23 cephalexin 500 mg capsule 500 mg PO QID 7 days #28 caps 08/31/23 Allergies Allergy/AdvReac Type Severity Reaction Status Date / Time empagliflozin Allergy Intermediate Headache, Verified 08/31/23 13:40 weight loss escitalopram Allergy Intermediate ineffective Verified 08/31/23 13:40 hydroxyzine AdvReac Intermediate Anxiety Verified 08/31/23 13:40 lisinopril AdvReac Intermediate Headache Verified 08/31/23 13:40 Review of Systems 2 Review of Systems: two small right facial lacerations Yes all other systems are reviewed and are negative [facility] Past Medical History Medical History Primary insomnia Mild recurrent major depression Chronic hand pain Opioid dependence Essential hypertension Recurrent UTI Diabetes mellitus Surgical History History of surgery Family History Family History Father No problems noted. Mother No problems noted. Maternal Grandmother Stomach cancer Sister No problems noted. Sister No problems noted. Brother No problems noted. Brother No problems noted. Son No problems noted. Son No problems noted. Daughter No problems noted. Daughter No problems noted. 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 Head: Yes normal to inspection, Yes No palpable skull fracture present, Yes normocephalic and Yes atraumatic Head images: 1. positive for small laceration. Negative for through and through. Bleeding controlled. 2. positive for small laceration. Nega tive for through and through. Bleeding controlled. Ears: hearing grossly normal bilaterally, external ears normal, TM's normal bilaterally, TM normal on the right, TM normal on the left, EAC's normal, mastoids normal and no periauricular adenopathy Throat: Yes posterior oropharynx normal, Yes tonsils normal and Yes uvula midline Eyes: General: appearance normal, both eyes and all related structures Neck: Neck: Yes normal visual inspection, Yes full ROM, Yes no lymphadenopathy, Yes no meningeal signs, Yes trachea midline, Yes supple, No anterior neck swelling and No tender Chest: Chest palpation & inspection: normal inspection of the chest and normal palpation of entire chest wall Resp: Effort & Inspection: normal respiratory effort and able to speak in complete sentences Auscultation: clear to auscultation bilaterally Cardio: Jugular venous distension: no JVD Heart sounds: S1 normal heart sound present and S2 normal heart sound present GI: Inspection: Yes normal to inspection Palpation (GI): Soft to palpation, not firm, nontender, no guarding and not rigid : General: Yes no CVA tenderness Back/Spine/Pelvis: Back: no CVA tenderness Skin: General skin exam: no rashes or lesions noted, elasticity normal and turgor normal Neuro: General: oriented to person, oriented to place, oriented to time, patient oriented x3, gait normal, tone normal, moves all extremities, Normal light touch and pain sensation, no meningeal signs, no focal motor deficits, CN's II-XI intact bilaterally and normal sensation to monofilament Extrem: General: Yes normal to inspection, Yes full ROM and Yes capillary refill normal Psych: Appearance: grossly normal, well kempt and not disheveled Course Course Course Narrative: This is a rapid medical exam. Deferred additional HPI, ROS, PE to primary provider. 43 yo here with laceration to right cheek which occurred at work from a wrench. Tetanus UTD. Will need closure with sutures VSS Medications Administered Discontinued Medications Generic Name Dose Route Start Last Admin Trade Name Freq PRN Reason Stop Dose Admin Diphtheria/Tetanus/Acell Pertussis 0.5 ml 08/31/23 14:39 08/31/23 14:47 Diphth,Pertus(Acell),Tet Adult 0.5 Ml Syringe IM 08/31/23 14:40 0.5 ml .ONCE ONE Administration Ibuprofen 800 mg 08/31/23 14:39 08/31/23 14:46 Ibuprofen 800 Mg Tablet PO 08/31/23 14:40 800 mg ONCE ONE Administration Medical Decision Making Medical Decision Making MDM Narrative: 43-year-old male history of diabetes presents to ED for 2 small right facial lacerations. Caused by Tool he was using while fixing his truck. Patient's complete normal movement of facial muscles. Rest of face and rest of body negative for trauma. Laceration is not through and through. Wound cleaned and sterile saline Betadine iodine. Small laceration closed with Dermabond. Tdap given. Due to history of diabetes patient will be discharged with antibiotics. Keflex. not suspecting brain bleed, facial trauma fracture, or nerve damage. Differential Diagnosis Differential Diagnoses: The differential diagnosis associated with the presentation includes ( Facial laceration) External Record Review External record reviewed: Other ( prior visit) Prescription Management I considered prescription management with: Antibiotic Discharge Plan Discharge Clinical Impression: Laceration of face Patient Disposition: Home, Self-Care Instructions: Laceration (ED), Skin Adhesive Care (ED) Additional Instructions: return to the ED immediately for any redness, pus discharge, foul odor, opening of laceration, fever, chills, headache, dizziness, paralysis of facial muscles, or any other concerning symptoms. Please follow-up primary care provider. keep Face dry at least the first 4 hours. Prescriptions: New cephalexin 500 mg capsule 500 mg PO QID 7 Days Qty: 28 0RF No Action (DME) FreeStyle Test Strip See Rx Instructions .ROUTE .MEDSUPPLY Qty: 100 11RF Rx Instructions: Use 1 test strip twice a day atorvastatin 20 mg tablet 20 mg PO BEDTIME 90 Days Qty: 90 0RF Tresiba FlexTouch U-200 200 unit/mL (3 mL) insulin pen 50 unit subcut BID 30 Days Qty: 15 1RF ibuprofen 800 mg tablet 800 mg PO Q8H PRN (Reason: pain) 30 Days Qty: 90 3RF (DME) lancets [FreeStyle Lancets] 28 gauge misc See Rx Instructions .Route Qty: 100 0RF Rx Instructions: As directed 4 times per day metformin 500 mg tablet extended release 24hr 1,000 mg PO BID Qty: 120 1RF metformin 1,000 mg tablet 1,000 mg PO BID 90 Days Qty: 180 1RF (DME) pen needle, diabetic 32 gauge x 5/32 needle See Rx Instructions subcut QID Qty: 100 12RF Rx Instructions: test 4 times per day zolpidem 5 mg tablet 5 mg PO BEDTIME PRN (Reason: sleep) 30 Days Qty: 30 0RF doxycycline hyclate 100 mg capsule 100 mg PO BID 7 Days Qty: 14 0RF cephalexin 500 mg capsule 500 mg PO QID 7 Days Qty: 28 0RF insulin aspart U-100 [Novolog FlexPen U-100 Insulin] 100 unit/mL (3 mL) insulin pen 10 unit subcut TID 90 Days Qty: 27 1RF alcohol swabs Pads, Medicated topical QID (DME) blood-glucose meter [FreeStyle [place] Lite] Kit See Rx Instructions .Route Qty: 1 0RF Rx Instructions: As directed checks 4 X/day Interventions: ED Discharge Assessment Last Done: 08/31/23 15:07 Discharge Date/Time: 08/31/23 15:07 Print Language: [place]
[2023-08-31 13:41] VITALS: BP 128/86; PULSE 110; RESP 18; TEMP 36.4; O2SAT 98; BMI 25.1
[2023-08-31] MEDS: Ibuprofen 800 MG TABLET PO (14:46)
[2023-08-31] MEDS: Diphth,Pertus(ACell),Tet Adult 0.5 ML SYRINGE IM (14:47)
== END 2023-08-31 15:07 | disposition home or self-care (01) ==
PROVIDERS: Emergency Provider Emergency Medicine; PCP Internal Medicine
DX: S01.412A Laceration without foreign body of left cheek and temporomandibular area, initial encounter (principal); W27.8XXA Contact with other nonpowered hand tool, initial encounter; Y93.89 Activity, other specified; Y92.9 Unspecified place or not applicable; Y99.9 Unspecified external cause status
CPT/HCPCS: 90471; 90715; 99283; 99284

== ENCOUNTER 2023-11-26 07:39 | Outpatient (REF) | payer OTHER, SELFPAY ==
[2023-11-26 08:22] LABS: Estimated Average Glucose 338 mg/dL; Hemoglobin A1c % 13.4 % (<6.0)
[2023-11-26 08:48] LABS: Alanine Aminotransferase 20 U/L (0-40); Albumin Level 4.1 g/dL (3.5-5.0); Alkaline Phosphatase 122 U/L (39-117); Anion Gap 12 (12-20); Aspartate Amino Transferase 12 U/L (5-37); Bilirubin Total 0.5 mg/dL (0.0-1.0); Blood Urea Nitrogen 16 mg/dL (9-16); Calcium 9.2 mg/dL (8.4-10.2); Carbon Dioxide 28 mmol/L (22-29); Chloride 105 mmol/L (96-108); Cholesterol 223 mg/dL (<200); Estimated Glomerular Filt Rate > 60; Glucose Fasting 161 mg/dL (60-99); HDL Cholesterol 45 mg/dL (>40); LDL Cholesterol Calculated 167 mg/dL (<100); Potassium 4.3 mmol/L (3.3-5.1); Sodium 141 mmol/L (135-145); Triglycerides 57 mg/dL (<150)
[2023-11-26 10:37] LABS: Creatinine Urine 180.19 mg/dL; Microalbum/Creatinine Ratio Ur 23.3 ug/mg cr (<30)
== END 2023-11-26 07:40 | disposition home or self-care (01) ==
LOC: HO.LAB 07:39
PROVIDERS: PCP Internal Medicine; Visit Provider Internal Medicine
DX: E11.40 Type 2 diabetes mellitus with diabetic neuropathy, unspecified (principal); E78.5 Hyperlipidemia, unspecified; M62.838 Other muscle spasm
CPT/HCPCS: 36415; 80053; 80061; 82043; 82570; 83036

== ENCOUNTER → 2023-12-23 15:15 | Outpatient (BNVA) | payer SELFPAY | PROVIDERS: PCP Internal Medicine; Visit Provider Physician Assistant | DX: Z02.79 Encounter for issue of other medical certificate (principal) ==

== ENCOUNTER 2024-04-03 12:06 | Outpatient (REF) | payer OTHER, SELFPAY | END 2024-04-03 12:07 | disposition home or self-care (01) | LOC: HO.HOSX 12:06 | PROVIDERS: Visit Provider Orthopaedic Surgery | DX: Z13.89 Encounter for screening for other disorder (principal) ==